=== PATIENT | female | born 1985 | race Caucasian/White ===

== ENCOUNTER 2018-09-08 12:01 | Observation (INO) | payer OTHER, SELFPAY ==
[2018-09-08] VITALS (14 sets, daily range): BP systolic 118–158; BP diastolic 65–101; PULSE 68–93; RESP 16–24; TEMP 36.4–37.2; O2SAT 92–100; BMI 42.6
--- NOTE | 2018-09-08 | PATH_ITS ---
[facility] Accession Number: [id number] . 01 Material submitted: . RIGHT OVARIAN CYST . 02 Diagnosis: Right Ovarian Cyst, Excision: Benign cystic teratoma. No immature components or evidence of malignancy identified. MRV/09/14/2018 . 02 Electronically signed: . Hari Cheatham MD, PhD, Pathologist NPI- [id number] . 01 Gross description: . Received in formalin, labeled right ovarian cyst, is a fragmented ovarian cyst (4.5 x 2.8 x 2.0 cm in aggregate). The serosa is gomes-bello smooth and flat. The cyst contains a cluster of hard well-developed teeth (2.5 x 2.5 x 2.2 cm). The tissue is covered in pale yellow paste-like material and matted strands of hair. No normal ovarian parenchyma is identified. Curtain Stitcher tissue is submitted in cassettes A1-A3. ([id number]) /MRV . 02 Pathologist provided ICD-10: D27.0 . 02 CPT . 137729 Specimen Comment: A duplicate report has been generated due to demographic updates. Performed at: 01 [facility] [address] [place] [address], [place], [place] [id number] MD Glenn Altman MD Phone: [phone] Performed at: 02 [facility] [address] [place], [place] [id number] MD Oneil Santiago MD Phone: [phone]
--- NOTE | 2018-09-08 13:02 | DI.US.S_ITS ---
PROCEDURE: US PELVIC COMPLETE INDICATIONS: PAIN, BLEEDING TECHNIQUE: Real-time scanning was performed of the pelvic organs, with image documentation. Additional endovaginal scanning was necessary due to incomplete visualization of the adnexal and endometrial structures by transabdominal scanning. COMPARISON: [facility], CT, CT ABDOMEN PELVIS W CON, 09/08/2018, 13:40. FINDINGS: Transabdominal scanning: Limited scanning through the kidneys shows no hydronephrosis. No pathologic free abdominal or pelvic fluid. Endovaginal scanning: Uterus: Uterus is normal in size at 4.9 x 2.5 x 3.4 cm. The endometrium measures 0.5 cm in combined thickness. No discrete uterine mass identified. Ovaries: There is a heterogeneous mass in the right adnexa measuring approximately 6.6 x 4.3 x 6.1 cm with echogenic regions compatible with fat as well as shadowing components consistent calcification. 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 The right ovary is not discretely identified separately. The left ovary measures 4.5 x 2.0 x 2.1 cm without a left adnexal mass. IMPRESSION: 1. Heterogeneous right adnexal mass containing fat and calcification consistent with a teratoma. The right ovary is not otherwise separately identified. Given the size of the mass, patient may be at risk for ovarian torsion. Recommend correlation with clinical history. Findings discussed with LORNE Davis on 09/08/18 at 2:05 PM. Dictated by: Glenn Funes M.D. on 09/08/2018 at 14:03 Approved by: Glenn Funes M.D. on 09/08/2018 at 14:09
[2018-09-08 13:17] LABS: Add Manual Diff / Slide Review NO; Basophils Percent Auto 0.9 % (0-2); Hematocrit 40.6 % (36-46); Hemoglobin 13.3 g/dL (12.0-16.0); Lymphocytes Percent Auto 35.1 % (25-40); Mean Corpuscular HGB Conc 32.8 % (30-36); Mean Corpuscular Hemoglobin 26.4 PG (26-34); Mean Corpuscular Volume 80.6 fL (80-100); Monocytes Percent Auto 6.1 % (3-14); Neutrophils Absolute Auto 6100 /uL (3000-5900); Neutrophils Percent Auto 55.9 % (50-75); Platelet Count 487 X10^3/uL (150-400); Red Blood Cell Count 5.04 X10^6/uL (4.0-5.2); Red Cell Distribution Width 14.1 % (11.6-14.8); White Blood Cell Count 10.8 X10^3/uL (4.5-11.0)
[2018-09-08 13:24] LABS: INR 1.1 (0.9-1.3); Prothrombin Time 11.9 SECONDS (10.1-12.7)
[2018-09-08 13:26] LABS: PTT Partial Thromboplastin Tim 34 SECONDS (26.4-36.2)
[2018-09-08 13:30] LABS: Alanine Aminotransferase 32 IU/L (9-52); Albumin 4.3 g/dL (3.5-5.0); Albumin Globulin Ratio 1.5 (1.0-2.8); Alkaline Phosphatase 112 U/L (38-126); Aspartate Aminotransferase 22 IU/L (14-36); BUN Creatinine Ratio 13.8 (6-22); Bilirubin Total 0.3 mg/dL (0.2-1.3); Blood Urea Nitrogen 11 mg/dL (7-17); Carbon Dioxide 28 mmol/L (22-32); Chloride 103 mmol/L (98-107); Estimated Glomerular Filt Rate > 60.0 mL/min (>60); Globulin 2.9 g/dL (1.7-4.1); Glucose 84 mg/dL (70-100); HEMOLYSIS < 15 (0-50); Lipase 49 U/L (23-300); Potassium 3.9 mmol/L (3.4-5.1); Sodium 142 mmol/L (137-145); Total Protein 7.2 g/dL (6.3-8.2)
--- NOTE | 2018-09-08 13:31 | DI.CT.S_ITS ---
PROCEDURE: CT ABDOMEN PELVIS W CON INDICATIONS: Abdominal wall the pain, mass on us TECHNIQUE: After the administration of intravenous contrast, 5 mm thick sections acquired from the diaphragm to the symphysis. 5 mm coronal and sagittal reformats were acquired. For radiation dose reduction, the following was used: automated exposure control, adjustment of mA and/or kV according to patient size. COMPARISON: [facility], US, US PELVIC COMPLETE, 09/08/2018, 13:12. FINDINGS: Image quality: Excellent. ABDOMEN: Lung bases: Lung bases are clear. Heart size is normal. Solid organs: The liver demonstrates no focal hepatic lesions. Gallbladder appears within normal limits without calcified gallstones. Biliary system is non dilated. Pancreas enhances normally. Spleen is normal in size and enhancement. No adrenal nodules. Kidneys demonstrate no hydronephrosis. Peritoneum and bowel: Bowel loops demonstrate normal wall thickness and caliber. The appendix is normal in appearance. No free fluid or air. Nodes and vessels: No retroperitoneal or mesenteric adenopathy by size criteria. Aorta and inferior vena cava are normal in size. Miscellaneous: No ventral hernias. PELVIS: Genitourinary: There is a heterogeneous oval mass in the right adnexa measuring 5.1 x 3.8 x 5.0 cm. There are internal soft tissue, fat, and calcified components. 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 The right ovary is otherwise not discretely identified. Left ovary and uterus appear normal in size. Bladder wall thickness is normal. Miscellaneous: No inguinal hernias or adenopathy. Bones: No suspicious bony lesions. No vertebral body compression fractures. IMPRESSION: 1. Heterogeneous right adnexal mass containing fat and calcification consistent with a teratoma. Given the size of the mass, patient may be at risk for ovarian torsion. Findings discussed with LORNE Davis on 09/08/18 at 2:05 PM. Dictated by: Glenn Funes M.D. on 09/08/2018 at 14:12 Approved by: Glenn Funes M.D. on 09/08/2018 at 14:17
--- NOTE | 2018-09-08 14:23 | ED.ABDPAIN ---
HPI - Abdominal Pain <Elizabeth Kaye, CUSTOM BOW MAKER-BC - Last Filed: 09/08/18 15:26> General Chief Complaint: Abdominal Pain Stated Complaint: PELVIC PAIN,BLEEDING UNEXPECTED Time Seen by Provider: 09/08/18 12:49 Source: patient Mode of arrival: ambulatory Limitations: no limitations History of Present Illness HPI narrative: Patient is a 32-year-old female who presents after being referred from her primary care provider for suspected ovarian torsion or acute etiology. She states that she had sudden onset of lower pelvic pain as well as vaginal bleeding last night. She states she was passing small clots. She denies any possibility of or sexually transmitted infection. She has not been sexually active for the past 7 years. She states she has a history of chronic pelvic pain. She states her last menstruation ended 2 days ago. She denies any fevers, nausea, vomiting, diarrhea, chest pain or shortness of breath. She states sometimes she sees stars with the pain. She quantifies her vaginal bleeding as vaginal bleeding on toilet paper. Related Data Home Medications Medication Instructions Recorded Confirmed albuterol sulfate [ProAir HFA] 1 puff INHALATION PRN PRN 09/08/18 09/08/18 [id number] 1 tab PO PRN PRN 09/08/18 09/08/18 [Excedrin Extra Strength] cetirizine [Zyrtec] 1 tab PO DAILY PRN 09/08/18 09/08/18 epinephrine 1 dose IM PRN PRN 09/08/18 09/08/18 fluticasone [Flonase Allergy 1 spray INTRANASAL PRN PRN 09/08/18 09/08/18 Relief] fluticasone-salmeterol [Advair HFA] 1 puff INHALATION BID 09/08/18 09/08/18 gabapentin 1 cap PO TID 09/08/18 09/08/18 levothyroxine [Synthroid] 1 tab PO DAILY 09/08/18 09/08/18 montelukast 10 mg PO DAILY 09/08/18 09/08/18 Previous Rx's Medication Instructions Recorded ibuprofen 600 mg PO QID PRN #30 tab 09/08/18 oxycodone-acetaminophen 2 tab PO Q4-6H PRN #40 tab 09/08/18 Allergies Allergy/AdvReac Type Severity Reaction Status Date / Time No Known Drug Allergies Allergy Verified 09/08/18 12:07 Review of Systems <Elizabeth Kaye CUSTOM BOW MAKER- - Last Filed: 09/08/18 15:26> Review of Systems GENERAL: Denies chills, fatigue, malaise, fever, sweats. HEENT: Denies sinus pain, ear pain, sore throat, difficulty swallowing, dizziness. RESPIRATORY: Denies dyspnea, cough, wheezing, hemoptysis, sputum. CARDIOVASCULAR: Denies chest pain, palpitations, orthopnea, edema, GASTROINTESTINAL: See HPI : Denies dysuria, frequency, incontinence, hematuria, urinary retention. MUSCULOSKELETAL: denies weakness, joint pain, or bony pain SKIN: Denies rash, skin lesions, or other NEUROLOGIC: Denies weakness, headache, numbness, change in speech, confusion, seizures, incoordination. PSYCHIATRIC: No concerning psychosocial issues. 12 point review of systems is negative except for those stated above Exam <Elizabeth KayeTIGISTP- - Last Filed: 09/08/18 15:26> Narrative Exam Narrative: GENERAL: obese female lying on stretcher with towel over eyes HEAD: Atraumatic. Normocephalic. No temporal or scalp tenderness. EYES: Pupils equal round and reactive. Extraocular motions intact. No scleral icterus. No injection or drainage. ENT: Nose without bleeding, purulent drainage or septal hematoma. Throat without erythema, tonsillar hypertrophy or exudate. Uvula midline. Airway patent. NECK: Trachea midline. No JVD or lymphadenopathy. Supple, nontender, no meningeal signs. CARDIOVASCULAR: Regular rate and rhythm without murmurs, gallops, or rubs. RESPIRATORY: Clear to auscultation. Breath sounds equal bilaterally. No wheezes, rales, or rhonchi. no cough or increased respiratory effort. No accessory muscle use. GASTROINTESTINAL: Abdomen soft, Diffusely tender, nondistended. No hepato-splenomegaly, or palpable masses. increasingly tender to palpation right lower quadrant with guarding noted. Active bowel sounds all 4 quadrants. EXTREMITIES: No clubbing, cyanosis, or edema. No joint tenderness, effusion, or edema noted. BACK: Nontender without deformity or crepitance. No flank tenderness. NEURO: AOx3. SKIN: No rash or erythema. Initial Vital Signs Initial Vital Signs: Vital Signs Temperature 97.5 F L 09/08/18 12:04 Pulse Rate 82 09/08/18 12:04 Respiratory Rate 18 09/08/18 12:04 Blood Pressure 158/101 H 09/08/18 12:04 Pulse Oximetry 94 09/08/18 12:04 <Erasmo Senior MD - Last Filed: 09/08/18 18:29> Initial Vital Signs Initial Vital Signs: Vital Signs Temperature 97.5 F L 09/08/18 12:04 Pulse Rate 82 09/08/18 12:04 Respiratory Rate 18 09/08/18 12:04 Blood Pressure 158/101 H 09/08/18 12:04 Pulse Oximetry 94 09/08/18 12:04 Course <CLARA Davis - Last Filed: 09/08/18 15:26> Orders Ordered: ED Orders 09/08/18 12:55 Complete Blood Count AUTO DIFF Stat Comprehensive Metabolic Panel Stat Lipase Stat Partial Thromboplastin Time Stat Prothrombin Time INR Stat 09/08/18 13:02 US pelvic complete Stat 09/08/18 13:31 CT abdomen pelvis w con Stat Sodium Chloride (Normal Saline 0.9%) 1,000 mls @ 100 mls/hr IV CONT PINA Last Admin: 09/08/18 17:01 Dose: 100 mls/hr Discontinued Medications Sodium Chloride (Normal Saline 0.9%) 1,000 mls @ 1,000 mls/hr IV BOLUS ONE Stop: 09/08/18 14:30 Last Infusion: 09/08/18 16:49 Dose: 0 mls/hr Admin: 09/08/18 15:23 Dose: 1,000 mls/hr Morphine Sulfate (Morphine) 4 mg IV NOW ONE Stop: 09/08/18 14:24 Last Admin: 09/08/18 15:23 Dose: 4 mg Ondansetron HCl (Zofran) 4 mg IV NOW ONE Stop: 09/08/18 14:24 Last Admin: 09/08/18 15:23 Dose: 4 mg Reevaluation(s) Reevaluation #1: Spoke with Radiology regarding imaging results. Given result of pelvic mass, contacted medical assistant ob gyn. Dr. Lloyd states she will be down to evaluate the patient. Discussed plan with patient. Patient remains NPO at this time Time: 14:00 Reevaluation #2: Spoke with Dr. Foist by phone, who states she would like to admit the patient take her to surgery tonight. Time: 15:00 Vital Signs - 8 hr 09/08/18 12:04 09/08/18 14:11 09/08/18 15:55 Temperature 97.5 F L Pulse Rate 82 86 77 Respiratory Rate 18 16 16 Blood Pressure 158/101 H Blood Pressure [Left Arm] 156/96 H 138/69 Pulse Oximetry 94 100 100 09/08/18 16:00 Temperature 98.8 F Pulse Rate 83 Respiratory Rate 16 Blood Pressure 143/94 H Blood Pressure [Left Arm] Pulse Oximetry 98 <Erasmo Senior MD - Last Filed: 09/08/18 18:29> Orders Ordered: ED Orders 09/08/18 12:55 Complete Blood Count AUTO DIFF Stat Comprehensive Metabolic Panel Stat Lipase Stat Partial Thromboplastin Time Stat Prothrombin Time INR Stat 09/08/18 13:02 US pelvic complete Stat 09/08/18 13:31 CT abdomen pelvis w con Stat Sodium Chloride (Normal Saline 0.9%) 1,000 mls @ 100 mls/hr IV CONT PINA Last Admin: 09/08/18 17:01 Dose: 100 mls/hr Discontinued Medications Sodium Chloride (Normal Saline 0.9%) 1,000 mls @ 1,000 mls/hr IV BOLUS ONE Stop: 09/08/18 14:30 Last Infusion: 09/08/18 16:49 Dose: 0 mls/hr Admin: 09/08/18 15:23 Dose: 1,000 mls/hr Morphine Sulfate (Morphine) 4 mg IV NOW ONE Stop: 09/08/18 14:24 Last Admin: 09/08/18 15:23 Dose: 4 mg Ondansetron HCl (Zofran) 4 mg IV NOW ONE Stop: 09/08/18 14:24 Last Admin: 09/08/18 15:23 Dose: 4 mg Vital Signs - 8 hr 09/08/18 12:04 09/08/18 14:11 09/08/18 15:55 Temperature 97.5 F L Pulse Rate 82 86 77 Respiratory Rate 18 16 16 Blood Pressure 158/101 H Blood Pressure [Left Arm] 156/96 H 138/69 Pulse Oximetry 94 100 100 09/08/18 16:00 Temperature 98.8 F Pulse Rate 83 Respiratory Rate 16 Blood Pressure 143/94 H Blood Pressure [Left Arm] Pulse Oximetry 98 MDM - Abdominal Pain <Elizabeth Kaye, C[employer] BOW MAKER-BC - Last Filed: 09/08/18 15:26> Lab Data Result diagrams: 09/08/18 12:55 09/08/18 12:55 Lab Results 09/08/18 09/08/18 09/08/18 Range/Units 12:55 12:55 12:55 WBC 10.8 (4.5-11.0) X10^3/uL RBC 5.04 (4.0-5.2) X10^6/uL Hgb 13.3 (12.0-16.0) g/dL Hct 40.6 (36-46) % MCV 80.6 (80-100) fL MCH 26.4 (26-34) PG MCHC 32.8 (30-36) % RDW 14.1 (11.6-14.8) % Plt Count 487 H (150-400) X10^3/uL Neut % (Auto) 55.9 (50-75) % Lymph % (Auto) 35.1 (25-40) % [place] % (Auto) 6.1 (3-14) % Eos % (Auto) 2.0 (2-4) % Baso % (Auto) 0.9 (0-2) % Neut # (Auto) 6100 H (8189-5969) /uL PT 11.9 (10.1-12.7) SECONDS INR 1.1 (0.9-1.3) APTT 34 (26.4-36.2) SECONDS Sodium 142 (137-145) mmol/L Potassium 3.9 (3.4-5.1) mmol/L Chloride 103 (98-107) mmol/L Carbon Dioxide 28 (22-32) mmol/L BUN 11 (7-17) mg/dL Creatinine 0.80 (0.52-1.04) mg/dL Estimated GFR > 60.0 (>60) mL/min BUN/Creatinine Ratio 13.8 (6-22) Glucose 84 (70-100) mg/dL Calcium 9.0 (8.4-10.2) mg/dL Total Bilirubin 0.3 (0.2-1.3) mg/dL AST 22 (14-36) IU/L ALT 32 (9-52) IU/L Alkaline Phosphatase 112 (38-126) U/L Total Protein 7.2 (6.3-8.2) g/dL Albumin 4.3 (3.5-5.0) g/dL Globulin 2.9 (1.7-4.1) g/dL Albumin/Globulin Ratio 1.5 (1.0-2.8) Lipase 49 (23-300) U/L Point of care testing: Point of Care Testing Test Results Negative Urine Dip Bedside Urine Glucose Negative Bedside Urine Bilirubin - Negative Bedside Urine Ketone - Negative Urine Specific [place] 1.020 Bedside Urine Occult Blood + Bedside Urine pH 6.0 Bedside Urine Protein - Negative Bedside Urine Urobilinogen - Negative Bedside Urine Nitrite - Negative Bedside Urine Leukocytes - Negative Esterase Imaging Data pelvic us: Radiologist's impression: [facility] DATE TYPE STATUS AUTHOR Agnes 09/08/18 13:31 Glenn Funes 09/08/18 13:02 Glenn FunesCullen duffyie R 32, F1985 ADM IN, AC 204 -1 166.37cm 117.934kg BSA: 2.22m? BMI: 42.6kg/m? Search Chart No Known Drug Allergies ONSET Today 14:11 [place] [address] Ultrasound Report Signed Patient: Jacinto Flowers RMR#: [id number] : 1985Acct:[id number] Age/Sex: te of Service: 09/08/18 Loc: ED Accession Number: [id number] Procedure: US pelvic complete Ordering Provider: Elizabeth Kaye CUSTOM BOW MAKER- PROCEDURE: US PELVIC COMPLETE INDICATIONS: PAIN, BLEEDING TECHNIQUE: Real-time scanning was performed of the pelvic organs, with image documentation. Additional endovaginal scanning was necessary due to incomplete visualization of the adnexal and endometrial structures by transabdominal scanning. COMPARISON: [facility], CT, CT ABDOMEN PELVIS W CON, 09/08/2018, 13:40. FINDINGS: Transabdominal scanning: Limited scanning through the kidneys shows no hydronephrosis. No pathologic free abdominal or pelvic fluid. Endovaginal scanning: Uterus: Uterus is normal in size at 4.9 x 2.5 x 3.4 cm. The endometrium measures 0.5 cm in combined thickness. No discrete uterine mass identified. Ovaries: There is a heterogeneous mass in the right adnexa measuring approximately 6.6 x 4.3 x 6.1 cm with echogenic regions compatible with fat as well as shadowing components consistent calcification. 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 The right ovary is not discretely identified separately. The left ovary measures 4.5 x 2.0 x 2.1 cm without a left adnexal mass. IMPRESSION: 1. Heterogeneous right adnexal mass containing fat and calcification consistent with a teratoma. The right ovary is not otherwise separately identified. Given the size of the mass, patient may be at risk for ovarian torsion. Recommend correlation with clinical history. Findings discussed with LORNE Davis on 09/08/18 at 2:05 PM. Dictated by: Glenn Funes M.D. on 09/08/2018 at 14:03 Approved by: Glenn Funes M.D. on 09/08/2018 at 14:09 CT scan - pelvis: Radiologist's impression: [place] [address] CT Scan Report Signed Patient: Jacinto Flowers RMR#: [id number] : 1985Acct:[id number] Age/Sex: te of Service: 09/08/18 Loc: ED Accession Number: [id number] Procedure: CT abdomen pelvis w con Ordering Provider: Elizabeth Kaye- PROCEDURE: CT ABDOMEN PELVIS W CON INDICATIONS: Abdominal wall the pain, mass on us TECHNIQUE: After the administration of intravenous contrast, 5 mm thick sections acquired from the diaphragm to the symphysis. 5 mm coronal and sagittal reformats were acquired. For radiation dose reduction, the following was used: automated exposure control, adjustment of mA and/or kV according to patient size. COMPARISON: [facility], , US PELVIC COMPLETE, 09/08/2018, 13:12. FINDINGS: Image quality: Excellent. ABDOMEN: Lung bases: Lung bases are clear. Heart size is normal. Solid organs: The liver demonstrates no focal hepatic lesions. Gallbladder appears within normal limits without calcified gallstones. Biliary system is non dilated. Pancreas enhances normally. Spleen is normal in size and enhancement. No adrenal nodules. Kidneys demonstrate no hydronephrosis. Peritoneum and bowel: Bowel loops demonstrate normal wall thickness and caliber. The appendix is normal in appearance. No free fluid or air. Nodes and vessels: No retroperitoneal or mesenteric adenopathy by size criteria. Aorta and inferior vena cava are normal in size. Miscellaneous: No ventral hernias. PELVIS: Genitourinary: There is a heterogeneous oval mass in the right adnexa measuring 5.1 x 3.8 x 5.0 cm. There are internal soft tissue, fat, and calcified components. 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 The right ovary is otherwise not discretely identified. Left ovary and uterus appear normal in size. Bladder wall thickness is normal. Miscellaneous: No inguinal hernias or adenopathy. Bones: No suspicious bony lesions. No vertebral body compression fractures. IMPRESSION: 1. Heterogeneous right adnexal mass containing fat and calcification consistent with a teratoma. Given the size of the mass, patient may be at risk for ovarian torsion. Findings discussed with LORNE Davis on 09/08/18 at 2:05 PM. Dictated by: Glenn Funes M.D. on 09/08/2018 at 14:12 Approved by: Glenn Funes M.D. on 09/08/2018 at 14:17 MDM Narrative Medical decision making narrative: patient is a 32-year-old female who presents with acute onset of pelvic pain and vaginal bleeding last night. Given the acuteness of her exam, a pelvic ultrasound was obtained which revealed a mass so a CT was also obtained. I discussed findings with the radiologist, who stated the patient likely has a teratoma but he cannot rule out ovarian torsion given the size of the mass. I spoke with the OBGYN on-call, who was down to evaluate the patient. Dr. Lloyd plans on admitting the patient and taking her to surgery later tonight. Discussed at length the plan with the patient she has no questions or concerns. <Erasmo Senior MD - Last Filed: 09/08/18 18:29> Lab Data Lab Results 09/08/18 09/08/18 09/08/18 Range/Units 12:55 12:55 12:55 WBC 10.8 (4.5-11.0) X10^3/uL RBC 5.04 (4.0-5.2) X10^6/uL Hgb 13.3 (12.0-16.0) g/dL Hct 40.6 (36-46) % MCV 80.6 (80-100) fL MCH 26.4 (26-34) PG MCHC 32.8 (30-36) % RDW 14.1 (11.6-14.8) % Plt Count 487 H (150-400) X10^3/uL Neut % (Auto) 55.9 (50-75) % Lymph % (Auto) 35.1 (25-40) % [place] % (Auto) 6.1 (3-14) % Eos % (Auto) 2.0 (2-4) % Baso % (Auto) 0.9 (0-2) % Neut # (Auto) 6100 H (1735-3231) /uL PT 11.9 (10.1-12.7) SECONDS INR 1.1 (0.9-1.3) APTT 34 (26.4-36.2) SECONDS Sodium 142 (137-145) mmol/L Potassium 3.9 (3.4-5.1) mmol/L Chloride 103 (98-107) mmol/L Carbon Dioxide 28 (22-32) mmol/L BUN 11 (7-17) mg/dL Creatinine 0.80 (0.52-1.04) mg/dL Estimated GFR > 60.0 (>60) mL/min BUN/Creatinine Ratio 13.8 (6-22) Glucose 84 (70-100) mg/dL Calcium 9.0 (8.4-10.2) mg/dL Total Bilirubin 0.3 (0.2-1.3) mg/dL AST 22 (14-36) IU/L ALT 32 (9-52) IU/L Alkaline Phosphatase 112 (38-126) U/L Total Protein 7.2 (6.3-8.2) g/dL Albumin 4.3 (3.5-5.0) g/dL Globulin 2.9 (1.7-4.1) g/dL Albumin/Globulin Ratio 1.5 (1.0-2.8) Lipase 49 (23-300) U/L Point of care testing: Point of Care Testing Test Results Negative Urine Dip Bedside Urine Glucose Negative Bedside Urine Bilirubin - Negative Bedside Urine Ketone - Negative Urine Specific [place] 1.020 Bedside Urine Occult Blood + Bedside Urine pH 6.0 Bedside Urine Protein - Negative Bedside Urine Urobilinogen - Negative Bedside Urine Nitrite - Negative Bedside Urine Leukocytes - Negative Esterase Discharge Plan Departure Patient Disposition: Admitted As Inpatient Clinical Impression: Teratoma, Abdominal pain Discharge Date/Time: 09/08/18 16:45 Interventions: ED Discharge Assessment Last Done: 09/08/18 16:00 Admit Date/Time: 09/08/18 15:21 Admit Provider: Crista Lloyd <Erasmo Senior MD - Last Filed: 09/08/18 18:29> Cosign ED Attending Cosangelesature Attestation: I was present in the ER at the time of this patient's care. I was available for verbal consultation or to see the patient directly if requested. I agree with the assessment and treatment plan.
[2018-09-08] MEDS: SODIUM CHLORIDE 0.9% 1,000 ML 1000 ML IV (15:23)
[2018-09-08] MEDS: ONDANSETRON 4 MG/2 ML INJ IV (15:23)
[2018-09-08] MEDS: MORPHINE 4 MG/ML INJ IV ×2 (15:23→19:10)
--- NOTE | 2018-09-08 15:26 | ED_ITS ---
HPI - Abdominal Pain <Elizabeth Kaye, SOCCER COMMENTATOR-BC - Last Filed: 09/08/18 15:26> General Chief Complaint: Abdominal Pain Stated Complaint: PELVIC PAIN,BLEEDING UNEXPECTED Time Seen by Provider: 09/08/18 12:49 Source: patient Mode of arrival: ambulatory Limitations: no limitations History of Present Illness HPI narrative: Patient is a 32-year-old female who presents after being referred from her primary care provider for suspected ovarian torsion or acute etiology. She states that she had sudden onset of lower pelvic pain as well as vaginal bleeding last night. She states she was passing small clots. She denies any possibility of or sexually transmitted infection. She has not been sexually active for the past 7 years. She states she has a history of chronic pelvic pain. She states her last menstruation ended 2 days ago. She denies any fevers, nausea, vomiting, diarrhea, chest pain or shortness of breath. She states sometimes she sees stars with the pain. She quantifies her vaginal bleeding as vaginal bleeding on toilet paper. Related Data Home Medications Medication Instructions Recorded Confirmed albuterol sulfate [ProAir HFA] 1 puff INHALATION PRN PRN 09/08/18 09/08/18 meokgkn-jkzydutfcpudb-gjveagfh 1 tab PO PRN PRN 09/08/18 09/08/18 [Excedrin Extra Strength] cetirizine [Zyrtec] 1 tab PO DAILY PRN 09/08/18 09/08/18 epinephrine 1 dose IM PRN PRN 09/08/18 09/08/18 fluticasone [Flonase Allergy 1 spray INTRANASAL PRN PRN 09/08/18 09/08/18 Relief] fluticasone-salmeterol [Advair HFA] 1 puff INHALATION BID 09/08/18 09/08/18 gabapentin 1 cap PO TID 09/08/18 09/08/18 levothyroxine [Synthroid] 1 tab PO DAILY 09/08/18 09/08/18 montelukast 10 mg PO DAILY 09/08/18 09/08/18 Previous Rx's Medication Instructions Recorded ibuprofen 600 mg PO QID PRN #30 tab 09/08/18 oxycodone-acetaminophen 2 tab PO Q4-6H PRN #40 tab 09/08/18 Allergies Allergy/AdvReac Type Severity Reaction Status Date / Time No Known Drug Allergies Allergy Verified 09/08/18 12:07 Review of Systems <Elizabeth Kaye SOCCER COMMENTATOR- - Last Filed: 09/08/18 15:26> Review of Systems GENERAL: Denies chills, fatigue, malaise, fever, sweats. HEENT: Denies sinus pain, ear pain, sore throat, difficulty swallowing, dizziness. RESPIRATORY: Denies dyspnea, cough, wheezing, hemoptysis, sputum. CARDIOVASCULAR: Denies chest pain, palpitations, orthopnea, edema, GASTROINTESTINAL: See HPI : Denies dysuria, frequency, incontinence, hematuria, urinary retention. MUSCULOSKELETAL: denies weakness, joint pain, or bony pain SKIN: Denies rash, skin lesions, or other NEUROLOGIC: Denies weakness, headache, numbness, change in speech, confusion, seizures, incoordination. PSYCHIATRIC: No concerning psychosocial issues. 12 point review of systems is negative except for those stated above Exam <Elizabeth KayeTIGISTP- - Last Filed: 09/08/18 15:26> Narrative Exam Narrative: GENERAL: obese female lying on stretcher with towel over eyes HEAD: Atraumatic. Normocephalic. No temporal or scalp tenderness. EYES: Pupils equal round and reactive. Extraocular motions intact. No scleral icterus. No injection or drainage. ENT: Nose without bleeding, purulent drainage or septal hematoma. Throat without erythema, tonsillar hypertrophy or exudate. Uvula midline. Airway patent. NECK: Trachea midline. No JVD or lymphadenopathy. Supple, nontender, no meningeal signs. CARDIOVASCULAR: Regular rate and rhythm without murmurs, gallops, or rubs. RESPIRATORY: Clear to auscultation. Breath sounds equal bilaterally. No wheezes , rales, or rhonchi. no cough or increased respiratory effort. No accessory muscle use. GASTROINTESTINAL: Abdomen soft, Diffusely tender, nondistended. No hepato- splenomegaly, or palpable masses. increasingly tender to palpation right lower quadrant with guarding noted. Active bowel sounds all 4 quadrants. EXTREMITIES: No clubbing, cyanosis, or edema. No joint tenderness, effusion, or edema noted. BACK: Nontender without deformity or crepitance. No flank tenderness. NEURO: AOx3. SKIN: No rash or erythema. Initial Vital Signs Initial Vital Signs: Vital Signs Temperature 97.5 F L 09/08/18 12:04 Pulse Rate 82 09/08/18 12:04 Respiratory Rate 18 09/08/18 12:04 Blood Pressure 158/101 H 09/08/18 12:04 Pulse Oximetry 94 09/08/18 12:04 <Erasmo Senior MD - Last Filed: 09/08/18 18:29> Initial Vital Signs Initial Vital Signs: Vital Signs Temperature 97.5 F L 09/08/18 12:04 Pulse Rate 82 09/08/18 12:04 Respiratory Rate 18 09/08/18 12:04 Blood Pressure 158/101 H 09/08/18 12:04 Pulse Oximetry 94 09/08/18 12:04 Course <CLARA Davis - Last Filed: 09/08/18 15:26> Orders Ordered: ED Orders 09/08/18 12:55 Complete Blood Count AUTO DIFF Stat Comprehensive Metabolic Panel Stat Lipase Stat Partial Thromboplastin Time Stat Prothrombin Time INR Stat 09/08/18 13:02 US pelvic complete Stat 09/08/18 13:31 CT abdomen pelvis w con Stat Sodium Chloride (Normal Saline 0.9%) 1,000 mls @ 100 mls/hr IV CONT PINA Last Admin: 09/08/18 17:01 Dose: 100 mls/hr Discontinued Medications Sodium Chloride (Normal Saline 0.9%) 1,000 mls @ 1,000 mls/hr IV BOLUS ONE Stop: 09/08/18 14:30 Last Infusion: 09/08/18 16:49 Dose: 0 mls/hr Admin: 09/08/18 15:23 Dose: 1,000 mls/hr Morphine Sulfate (Morphine) 4 mg IV NOW ONE Stop: 09/08/18 14:24 Last Admin: 09/08/18 15:23 Dose: 4 mg Ondansetron HCl (Zofran) 4 mg IV NOW ONE Stop: 09/08/18 14:24 Last Admin: 09/08/18 15:23 Dose: 4 mg Reevaluation(s) Reevaluation #1: Spoke with Radiology regarding imaging results. Given result of pelvic mass, contacted marketing representative. Dr. Lloyd states she will be down to evaluate the patient. Discussed plan with patient. Patient remains NPO at this time Time: 14:00 Reevaluation #2: Spoke with Dr. Foist by phone, who states she would like to admit the patient take her to surgery tonight. Time: 15:00 Vital Signs - 8 hr 09/08/18 12:04 09/08/18 14:11 09/08/18 15:55 Temperature 97.5 F L Pulse Rate 82 86 77 Respiratory Rate 18 16 16 Blood Pressure 158/101 H Blood Pressure [Left Arm] 156/96 H 138/69 Pulse Oximetry 94 100 100 09/08/18 16:00 Temperature 98.8 F Pulse Rate 83 Respiratory Rate 16 Blood Pressure 143/94 H Blood Pressure [Left Arm] Pulse Oximetry 98 <Erasmo Senior MD - Last Filed: 09/08/18 18:29> Orders Ordered: ED Orders 09/08/18 12:55 Complete Blood Count AUTO DIFF Stat Comprehensive Metabolic Panel Stat Lipase Stat Partial Thromboplastin Time Stat Prothrombin Time INR Stat 09/08/18 13:02 US pelvic complete Stat 09/08/18 13:31 CT abdomen pelvis w con Stat Sodium Chloride (Normal Saline 0.9%) 1,000 mls @ 100 mls/hr IV CONT PINA Last Admin: 09/08/18 17:01 Dose: 100 mls/hr Discontinued Medications Sodium Chloride (Normal Saline 0.9%) 1,000 mls @ 1,000 mls/hr IV BOLUS ONE Stop: 09/08/18 14:30 Last Infusion: 09/08/18 16:49 Dose: 0 mls/hr Admin: 09/08/18 15:23 Dose: 1,000 mls/hr Morphine Sulfate (Morphine) 4 mg IV NOW ONE Stop: 09/08/18 14:24 Last Admin: 09/08/18 15:23 Dose: 4 mg Ondansetron HCl (Zofran) 4 mg IV NOW ONE Stop: 09/08/18 14:24 Last Admin: 09/08/18 15:23 Dose: 4 mg Vital Signs - 8 hr 09/08/18 12:04 09/08/18 14:11 09/08/18 15:55 Temperature 97.5 F L Pulse Rate 82 86 77 Respiratory Rate 18 16 16 Blood Pressure 158/101 H Blood Pressure [Left Arm] 156/96 H 138/69 Pulse Oximetry 94 100 100 09/08/18 16:00 Temperature 98.8 F Pulse Rate 83 Respiratory Rate 16 Blood Pressure 143/94 H Blood Pressure [Left Arm] Pulse Oximetry 98 MDM - Abdominal Pain <Elizabeth Kaye, SOCCER COMMENTATOR-BC - Last Filed: 09/08/18 15:26> Lab Data Result diagrams: 09/08/18 12:55 09/08/18 12:55 Lab Results 09/08/18 09/08/18 09/08/18 Range/Units 12:55 12:55 12:55 WBC 10.8 (4.5-11.0) X10^3/uL RBC 5.04 (4.0-5.2) X10^6/uL Hgb 13.3 (12.0-16.0) g/dL Hct 40.6 (36-46) % MCV 80.6 (80-100) fL MCH 26.4 (26-34) PG MCHC 32.8 (30-36) % RDW 14.1 (11.6-14.8) % Plt Count 487 H (150-400) X10^3/uL Neut % (Auto) 55.9 (50-75) % Lymph % (Auto) 35.1 (25-40) % [place] % (Auto) 6.1 (3-14) % Eos % (Auto) 2.0 (2-4) % Baso % (Auto) 0.9 (0-2) % Neut # (Auto) 6100 H (4423-3733) /uL PT 11.9 (10.1-12.7) SECONDS INR 1.1 (0.9-1.3) APTT 34 (26.4-36.2) SECONDS Sodium 142 (137-145) mmol/L Potassium 3.9 (3.4-5.1) mmol/L Chloride 103 (98-107) mmol/L Carbon Dioxide 28 (22-32) mmol/L BUN 11 (7-17) mg/dL Creatinine 0.80 (0.52-1.04) mg/dL Estimated GFR > 60.0 (>60) mL/min BUN/Creatinine Ratio 13.8 (6-22) Glucose 84 (70-100) mg/dL Calcium 9.0 (8.4-10.2) mg/dL Total Bilirubin 0.3 (0.2-1.3) mg/dL AST 22 (14-36) IU/L ALT 32 (9-52) IU/L Alkaline Phosphatase 112 (38-126) U/L Total Protein 7.2 (6.3-8.2) g/dL Albumin 4.3 (3.5-5.0) g/dL Globulin 2.9 (1.7-4.1) g/dL Albumin/Globulin Ratio 1.5 (1.0-2.8) Lipase 49 (23-300) U/L Point of care testing: Point of Care Testing Test Results Negative Urine Dip Bedside Urine Glucose Negative Bedside Urine Bilirubin - Negative Bedside Urine Ketone - Negative Urine Specific [place] 1.020 Bedside Urine Occult Blood + Bedside Urine pH 6.0 Bedside Urine Protein - Negative Bedside Urine Urobilinogen - Negative Bedside Urine Nitrite - Negative Bedside Urine Leukocytes - Negative Esterase Imaging Data pelvic us: Radiologist's impression: [facility] DATE TYPE STATUS AUTHOR Agnes 09/08/18 13:31 Glenn Funes 09/08/18 13:02 Glenn FunesCullen duffyie R 32, F1985 ADM IN, AC 204 -1 166.37cm 117.934kg BSA: 2.22m? BMI: 42.6kg/m? Search Chart No Known Drug Allergies ONSET Today 14:11 [place] [address] Ultrasound Report Signed Patient: Jacinto Flowers RMR#: [id number] : 1985Acct:[id number] Age/Sex: te of Service: 09/08/18 Loc: ED Accession Number: [id number] Procedure: US pelvic complete Ordering Provider: Elizabeth Kaye SOCCER COMMENTATOR- PROCEDURE: US PELVIC COMPLETE INDICATIONS: PAIN, BLEEDING TECHNIQUE: Real-time scanning was performed of the pelvic organs, with image documentation. Additional endovaginal scanning was necessary due to incomplete visualization of the adnexal and endometrial structures by transabdominal scanning. COMPARISON: [facility], CT, CT ABDOMEN PELVIS W CON, 09/08/2018, 13:40. FINDINGS: Transabdominal scanning: Limited scanning through the kidneys shows no hydronephrosis. No pathologic free abdominal or pelvic fluid. Endovaginal scanning: Uterus: Uterus is normal in size at 4.9 x 2.5 x 3.4 cm. The endometrium measures 0.5 cm in combined thickness. No discrete uterine mass identified. Ovaries: There is a heterogeneous mass in the right adnexa measuring approximately 6.6 x 4.3 x 6.1 cm with echogenic regions compatible with fat as well as shadowing components consistent calcification. 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 The right ovary is not discretely identified separately. The left ovary measures 4.5 x 2.0 x 2.1 cm without a left adnexal mass. IMPRESSION: 1. Heterogeneous right adnexal mass containing fat and calcification consistent with a teratoma. The right ovary is not otherwise separately identified. Given the size of the mass, patient may be at risk for ovarian torsion. Recommend correlation with clinical history. Findings discussed with LORNE Davis on 09/08/18 at 2:05 PM. Dictated by: Glenn Funes M.D. on 09/08/2018 at 14:03 Approved by: Glenn Funes M.D. on 09/08/2018 at 14:09 CT scan - pelvis: Radiologist's impression: [place] [address] CT Scan Report Signed Patient: Jacinto Flowers RMR#: [id number] : 1985Acct:[id number] Age/Sex: te of Service: 09/08/18 Loc: ED Accession Number: [id number] Procedure: CT abdomen pelvis w con Ordering Provider: Elizabeth Kaye- PROCEDURE: CT ABDOMEN PELVIS W CON INDICATIONS: Abdominal wall the pain, mass on us TECHNIQUE: After the administration of intravenous contrast, 5 mm thick sections acquired from the diaphragm to the symphysis. 5 mm coronal and sagittal reformats were acquired. For radiation dose reduction, the following was used: automated exposure control, adjustment of mA and/or kV according to patient size. COMPARISON: [facility], , US PELVIC COMPLETE, 09/08/2018, 13:12. FINDINGS: Image quality: Excellent. ABDOMEN: Lung bases: Lung bases are clear. Heart size is normal. Solid organs: The liver demonstrates no focal hepatic lesions. Gallbladder appears within normal limits without calcified gallstones. Biliary system is non dilated. Pancreas enhances normally. Spleen is normal in size and enhancement. No adrenal nodules. Kidneys demonstrate no hydronephrosis. Peritoneum and bowel: Bowel loops demonstrate normal wall thickness and caliber. The appendix is normal in appearance. No free fluid or air. Nodes and vessels: No retroperitoneal or mesenteric adenopathy by size criteria. Aorta and inferior vena cava are normal in size. Miscellaneous: No ventral hernias. PELVIS: Genitourinary: There is a heterogeneous oval mass in the right adnexa measuring 5.1 x 3.8 x 5.0 cm. There are internal soft tissue, fat, and calcified components. 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 The right ovary is otherwise not discretely identified. Left ovary and uterus appear normal in size. Bladder wall thickness is normal. Miscellaneous: No inguinal hernias or adenopathy. Bones: No suspicious bony lesions. No vertebral body compression fractures. IMPRESSION: 1. Heterogeneous right adnexal mass containing fat and calcification consistent with a teratoma. Given the size of the mass, patient may be at risk for ovarian torsion. Findings discussed with LORNE Davis on 09/08/18 at 2:05 PM. Dictated by: Glenn Funes M.D. on 09/08/2018 at 14:12 Approved by: Glenn Funes M.D. on 09/08/2018 at 14:17 MDM Narrative Medical decision making narrative: patient is a 32-year-old female who presents with acute onset of pelvic pain and vaginal bleeding last night. Given the acuteness of her exam, a pelvic ultrasound was obtained which revealed a mass so a CT was also obtained. I discussed findings with the radiologist, who stated the patient likely has a teratoma but he cannot rule out ovarian torsion given the size of the mass. I spoke with the OBGYN on-call , who was down to evaluate the patient. Dr. Lloyd plans on admitting the patient and taking her to surgery later tonight. Discussed at length the plan with the patient she has no questions or concerns. <Erasmo Senior MD - Last Filed: 09/08/18 18:29> Lab Data Lab Results 09/08/18 09/08/18 09/08/18 Range/Units 12:55 12:55 12:55 WBC 10.8 (4.5-11.0) X10^3/uL RBC 5.04 (4.0-5.2) X10^6/uL Hgb 13.3 (12.0-16.0) g/dL Hct 40.6 (36-46) % MCV 80.6 (80-100) fL MCH 26.4 (26-34) PG MCHC 32.8 (30-36) % RDW 14.1 (11.6-14.8) % Plt Count 487 H (150-400) X10^3/uL Neut % (Auto) 55.9 (50-75) % Lymph % (Auto) 35.1 (25-40) % [place] % (Auto) 6.1 (3-14) % Eos % (Auto) 2.0 (2-4) % Baso % (Auto) 0.9 (0-2) % Neut # (Auto) 6100 H (7582-3562) /uL PT 11.9 (10.1-12.7) SECONDS INR 1.1 (0.9-1.3) APTT 34 (26.4-36.2) SECONDS Sodium 142 (137-145) mmol/L Potassium 3.9 (3.4-5.1) mmol/L Chloride 103 (98-107) mmol/L Carbon Dioxide 28 (22-32) mmol/L BUN 11 (7-17) mg/dL Creatinine 0.80 (0.52-1.04) mg/dL Estimated GFR > 60.0 (>60) mL/min BUN/Creatinine Ratio 13.8 (6-22) Glucose 84 (70-100) mg/dL Calcium 9.0 (8.4-10.2) mg/dL Total Bilirubin 0.3 (0.2-1.3) mg/dL AST 22 (14-36) IU/L ALT 32 (9-52) IU/L Alkaline Phosphatase 112 (38-126) U/L Total Protein 7.2 (6.3-8.2) g/dL Albumin 4.3 (3.5-5.0) g/dL Globulin 2.9 (1.7-4.1) g/dL Albumin/Globulin Ratio 1.5 (1.0-2.8) Lipase 49 (23-300) U/L Point of care testing: Point of Care Testing Test Results Negative Urine Dip Bedside Urine Glucose Negative Bedside Urine Bilirubin - Negative Bedside Urine Ketone - Negative Urine Specific [place] 1.020 Bedside Urine Occult Blood + Bedside Urine pH 6.0 Bedside Urine Protein - Negative Bedside Urine Urobilinogen - Negative Bedside Urine Nitrite - Negative Bedside Urine Leukocytes - Negative Esterase Discharge Plan Departure Patient Disposition: Admitted As Inpatient Clinical Impression: Teratoma, Abdominal pain Discharge Date/Time: 09/08/18 16:45 Interventions: ED Discharge Assessment Last Done: 09/08/18 16:00 Admit Date/Time: 09/08/18 15:21 Admit Provider: Crista Lloyd <Erasmo Senior MD - Last Filed: 09/08/18 18:29> Cosign ED Attending Cosangelesature Attestation: I was present in the ER at the time of this patient's care. I was available for verbal consultation or to see the patient directly if requested. I agree with the assessment and treatment plan.
--- NOTE | 2018-09-08 16:43 | PM.GYNHP.1 ---
History of Present Illness Reason for admission: other (Right lower quadrant pain and teratoma possible torsion on ultrasound and CT) Narrative: Jacinto Flowers is a 32 year old female admitted for surgical evaluation of right lower quadrant pain with teratoma by a CT scan/ultrasound with possible torsion [facility] Medical History Migraine headache with aura (Chronic) Surgical History History of tonsillectomy (Inactive) S/P wrist surgery (Inactive) Social History household members: spouse Smoking Status: Never smoker Meds Home Medications Medication Instructions Recorded Confirmed Type albuterol sulfate [ProAir HFA] 1 puff INHALATION PRN PRN 09/08/18 09/08/18 History dvtubtj-yqavnqlhqeuue-qjixbscf 1 tab PO PRN PRN 09/08/18 09/08/18 History [Excedrin Extra Strength] cetirizine [Zyrtec] 1 tab PO DAILY PRN 09/08/18 09/08/18 History epinephrine 1 dose IM PRN PRN 09/08/18 09/08/18 History fluticasone [Flonase Allergy 1 spray INTRANASAL PRN PRN 09/08/18 09/08/18 History Relief] fluticasone-salmeterol [Advair HFA] 1 puff INHALATION BID 09/08/18 09/08/18 History gabapentin 1 cap PO TID 09/08/18 09/08/18 History ibuprofen 600 mg PO QID PRN #30 tab 09/08/18 Rx levothyroxine [Synthroid] 1 tab PO DAILY 09/08/18 09/08/18 History montelukast 10 mg PO DAILY 09/08/18 09/08/18 History oxycodone-acetaminophen 2 tab PO Q4-6H PRN #40 tab 09/08/18 Rx Allergies Allergy/AdvReac Type Severity Reaction Status Date / Time No Known Drug Allergies Allergy Verified 09/08/18 12:07 Review of Systems Review of Systems Patient was doing well until yesterday when she started to have increasing right lower quadrant pain. She presented to would be ER who sent her here for diagnostic imaging. She denies any nausea. She has been having some unusual bleeding. She denies any fevers. She denies any constipation or diarrhea. She denies any problems with urination. All systems reviewed & are unremarkable except as noted in HPI and below Exam Vital Signs (past 8 hours): - 09/08/18 12:04 09/08/18 14:11 09/08/18 15:55 Temperature 97.5 F L Pulse Rate 82 86 77 Respiratory Rate 18 16 16 Blood Pressure 158/101 H Blood Pressure [Left Arm] 156/96 H 138/69 Pulse Oximetry 94 100 100 09/08/18 16:00 Temperature 98.8 F Pulse Rate 83 Respiratory Rate 16 Blood Pressure 143/94 H Blood Pressure [Left Arm] Pulse Oximetry 98 Oxygen Delivery Method Room Air Narrative Exam Narrative: HEENT exam within normal limits. Lungs are clear to auscultation and percussion. Heart is regular rate and rhythm no S3-S4 or murmurs. Abdomen is soft with tenderness with possible mild rebound in her right lower quadrant. Pelvic exam deferred for exam under anesthesia extremities without edema and nontender. Objective Labs Result Diagrams: 09/08/18 12:55 09/08/18 12:55 Labs: Laboratory Results - last 24 hr 09/08/18 09/08/18 09/08/18 12:55 12:55 12:55 WBC 10.8 RBC 5.04 Hgb 13.3 Hct 40.6 MCV 80.6 MCH 26.4 MCHC 32.8 RDW 14.1 Plt Count 487 H Neut % (Auto) 55.9 Lymph % (Auto) 35.1 [place] % (Auto) 6.1 Eos % (Auto) 2.0 Baso % (Auto) 0.9 Neut # (Auto) 6100 H PT 11.9 INR 1.1 APTT 34 Sodium 142 Potassium 3.9 Chloride 103 Carbon Dioxide 28 BUN 11 Creatinine 0.80 Estimated GFR > 60.0 BUN/Creatinine Ratio 13.8 Glucose 84 Calcium 9.0 Total Bilirubin 0.3 AST 22 ALT 32 Alkaline Phosphatase 112 Total Protein 7.2 Albumin 4.3 Globulin 2.9 Albumin/Globulin Ratio 1.5 Lipase 49 Assessment & Plan (1) Teratoma: Current visit: Yes Status: Acute (2) Abdominal pain: Qualifiers: Abdominal location: lower abdomen, unspecified Qualified Code(s): R10.30 - Lower abdominal pain, unspecified Current visit: Yes Status: Acute Plan: Assessment/Plan Narrative: Patient with ultrasound and CT scan showing 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 Decision was made to proceed with laparoscopic removal. Patient understands that if possible we will try to save her ovary removing just the cyst. If the ovary is torsed and does not appear to have blood flow after on twisting then that she understands her ovary and tube on the right side will be removed. Risk of damage to internal organs, infection, bleeding enough to require blood transfusion, complication from anesthesia were discussed with the patient. Consent form was signed, questions answered. Patient would like to go home tonight. Precautions to take it easy the next week were discussed with the patient. She understands she may have some bleeding from the uterine manipulator. Time Spent With Patient Time with patient: 25 - 35 minutes Quality VTE Deep Vein Thrombosis/Pulmonary Embolism Present on Admission: No
[2018-09-08] MEDS: SODIUM CHLORIDE 0.9% 1,000 ML 100 ML IV (17:01)
--- NOTE | 2018-09-08 19:25 | PC.NURSE ---
Addendum entered by Basia Barrett R.N. 09/08/18 22:23: IVF infusing, tolerating PO intake. No nausea or vomiting. Original Note: Addendum entered by Basia Barrett R.N. 09/08/18 21:48: Return post operatively to at 2140 in stable condition. Sleepy but arouses easily. VSS and afebrile. Original Note: Addendum entered by Basia Barrett R.N. 09/08/18 19:37: Patient transferred to OR via hospital bed with RN, at bedside. Patients has her ring. RN aware regarding new prescription medication required. Patient awake, alert, VSS and pain adequately controlled. Original Note: 1700 Randee shift note: Patient arrived from ED in stable condition. IVF initiated and VSS. Last PO intake at 0200 on 1031. No c/o nausea/vomiting or pain or arrival. A & O x 3, ambulating with stand by assist. Remain NPO. Oriented to room and environment. 1919: Notified Dr. Lloyd regarding increasing pain, obtained order for IV pain control. Updated by Trent ALICIA regarding surgical time, 19:30-1999. at bedside providing supportive care.
[2018-09-08] MEDS: LACTATED RINGERS 1,000 ML 42 ML IV ×2 (19:45→20:48)
--- NOTE | 2018-09-08 20:12 | SUR.OPER ---
Lithotomy on padded OR bed, head on pillow, arms secured on padded arm boards at <90 degrees abduction. Legs secured in padded yellow fins stirrups.
[2018-09-08] MEDS: BUPIVACAINE 0.5% (PF) VIAL 30 ML INJ (20:16)
--- NOTE | 2018-09-08 21:13 | PM.OP.1 ---
Operative Date/Time/Diagnoses Date of procedure: 09/08/18 Time of procedure: 21:13 Pre-op diagnosis: Dermoid right ovary with possible torsion Post-op diagnosis: other (Dermoid but no torsion) Procedure & Clinicians Procedure: Laparoscopic right ovarian cystectomy Same procedure as scheduled: Yes Indications: Dermoid cyst seen on CT scan and ultrasound with possible torsion Surgeon: Crista Lloyd Click Yes if Unassisted: Yes Anesthesia Type: General Operative Notes Findings: Right ovarian dermoid. Normal tubes and uterus. Normal right ovary. Normal bowel surface. Normal liver edge. No internal hernias. No endometriosis. No scar tissue. Closure Type: primary Specimen(s): other (Right ovarian cyst) Estimated Blood Loss (mL): 5 Blood products transfused: none Procedure in detail: Patient was brought to the operating room where she underwent general anesthesia. She was placed in low yellowfin stirrups and prepped and draped in usual sterile fashion. Antibiotics were not indicated. Pulsatile stockings were in place and functional. Warming was with blankets. A single-tooth tenaculum was placed on the anterior lip of the cervix. The area of the incisions were injected with half percent Marcaine with epinephrine. An incision was made in the umbilicus with a scalpel. Dissection was undertaken to the fascial layer which was incised transversely and held with 0 Polysorb sutures x2. The peritoneum was entered bluntly and the Ann cannula was placed in the abdomen and tied in place. The abdomen was insufflated to 4 L of CO2. 2 5 mm trochars were placed in the right and left lower quadrant under direct visualization after incising the skin. There did not appear to be any damage with placement of the trocars. An incision was made in the right ovarian wall with cautery attached scissors. Dissection was undertaken of the cyst it from the normal ovarian tissue. During the dissection the cyst was ruptured. The cyst was placed in an Endo-Catch bag that had been placed down the Ann. The cyst was removed from the abdomen. The abdomen was copiously irrigated and adequate hemostasis was noted. The CO2 was allowed to escape from the abdomen. The trochars were removed. Skin was closed with 4-0 nylon. The patient went to recovery room in good condition. Complications: none Condition: stable Disposition: same day surgery Plan for aftercare: Home when awake and stable
--- NOTE | 2018-09-08 21:20 | PC.NURSE ---
Upon admission, pt was adamant was discharging to home following surgery this evening. Pt desires valuables to be locked in hospital safe and informed pt policy re home meds. To insure pt would have access to home meds upon discharge this evening, home meds with knowledge of supervisor detasseling crew, Chika, were secured in safe along with other valuables. Word was received from PACU pt would be staying overnight. At this time, pt's epi pens x 3 along with po tablets x 2 were sent to hospital pharmacy with inpatient pharmacist. Other valuables: wallet with numerous cards inside, pepper spray, knife and bracelet were resecured in hospital safe. Witnessed by supervisor detasseling crew, Chika.
[2018-09-08] MEDS: KETOROLAC 30 MG/ML VIAL IV (21:25)
--- NOTE | 2018-09-09 00:58 | PC.NURSE ---
Back Gray Cloth Washer Note: 0000: Awake, watching TV. Pt states she is comfortable and not having pain. Pt concerned about her home medications, particularly her Synthroid, and is aware these medications were not ordered by her surgeon. She agreed to wait until morning to solve this problem. Lap incision sites (3) have bandaids intact, with small amt serosanguinous drainage. Her collin pad is without any drainage. IV in place in rt AC with NS infusing at 100cc/hr.
[2018-09-09 03:00] VITALS: BP 120/78; PULSE 106; RESP 16; TEMP 37.2; O2SAT 96
[2018-09-09] MEDS: OXYCODONE/ACETAMINOPHEN 5/325 TABLET 2 TAB PO (04:09)
[2018-09-09] MEDS: SODIUM CHLORIDE 0.9% 1,000 ML 100 ML IV (04:11)
--- NOTE | 2018-09-09 08:06 | PC.NURSE ---
Patient extremely eager to be discharged to home this morning. Paper work reviewed with patient, patient states she will call to schedule follow up appointment for 1 week. She reports her took prescriptions home last night to fill for her. Patient ambulatory in room, voiding without difficulty, bandaid dressings intact mild drainage noted. Patient instructed to call MD with questions or concerns. Home belongings and home medications returned to patient. Patient refused wheelchair out, picked her up and discharged to home.
--- NOTE | 2018-09-10 09:42 | PM.DS.1 ---
History of Present Illness Date Patient Seen: 09/09/18 Time Patient Seen: 06:42 Chief complaint: PELVIC PAIN,BLEEDING UNEXPECTED Narrative: Patient was admitted through the emergency room for possible torsion of a right dermoid cyst. Patient underwent laparoscopic removal of the ovarian cyst and there was no torsion at the time. Patient was discharged when fully recovered which ended up being several hours due to the time the surgery ended. Discharge Providers Date of admission: 09/08/18 15:21 Discharge provider: Crista Lloyd MD Discharge Date: 09/09/18 Summary Discharge Diagnosis: Right ovarian dermoid cyst Hospital Course: Patient was taken to surgery from the emergency room for right ovarian dermoid cyst with the possibility of torsion. She did not have a torsion. She underwent a right ovarian cystectomy. She was discharged as an outpatient surgery however due to the time at the end of the surgery she ended up staying until the morning. She was ambulatory. Tolerating regular diet. Pain under control. Her abdomen was soft and appropriately tender. Her incisions were clean dry and intact. Exam Vital Signs (past 8 hours): Oxygen Delivery Method Room Air Oxygen Flow Rate 2 Objective Labs Result Diagrams: 09/08/18 12:55 09/08/18 12:55 Discharge Plan Discharge Plan Patient Disposition: Home Discharge Med Rec/Prescriptions Prescriptions: New ibuprofen 600 mg tablet 600 mg PO QID PRN (Reason: pain) Qty: 30 RF: 0 oxycodone-acetaminophen 5-300 mg tablet 2 tab PO Q4-6H PRN (Reason: pain) Qty: 40 RF: 0 oxycodone-acetaminophen 5-325 mg tablet 2 tab PO Q4-6H PRN (Reason: pain) Qty: 40 RF: 0 No Action levothyroxine [Synthroid] 50 mcg tablet 1 tab PO DAILY RF: 0 gabapentin 300 mg capsule 1 cap PO TID RF: 0 montelukast 10 mg tablet 10 mg PO DAILY RF: 0 epinephrine 0.3 mg/0.3 mL auto-injector 1 dose IM PRN PRN (Reason: Allergic Reaction) RF: 0 albuterol sulfate [ProAir HFA] 90 mcg/actuation HFA aerosol inhaler 1 puff Inhalation PRN PRN (Reason: Shortness Of Breath) RF: 0 fluticasone-salmeterol [Advair HFA] 45-21 mcg/actuation HFA aerosol inhaler 1 puff Inhalation BID RF: 0 cetirizine [Zyrtec] 10 mg Tablet 1 tab PO DAILY PRN (Reason: Allergy Symptoms) RF: 0 fluticasone [Flonase Allergy Relief] 50 mcg/actuation [place],Suspension 1 spray Intranasal PRN PRN (Reason: Allergy Symptoms) RF: 0 [id number]-[id number] [Excedrin Extra Strength] 250-250-65 mg Tablet 1 tab PO PRN PRN (Reason: pain) RF: 0 Follow up/Referrals: Crista Lloyd MD [Physician] - 1 Week (please call & schedule incision check appointment with Dr. Kamara or Estela at [facility] [phone] for 1 week from discharge) Provider Discharge Instructions Diet: Regular Activity: As tolerated Skin/Wound/Dressing Care Report to your healthcare provider any signs of infection, such as:: chills, fever, increased pain and unusual drainage Dressing: Leave bandaids on for 24 hr. After removing Band-Aid leave Steri-Strips in place for 1 week. May get wet just pat dry. Visit Report/Discharge Packet Instructions: Oxycodone, Ibuprofen Visit Report Forms: Stroke Signs & Symptoms Discharge Data Attending Provider: Crista Lloyd Admit Date/Time: 09/08/18 15:21 Discharges patient from system. Discharge Date/Time: 09/09/18 08:00 Quality VTE Deep Vein Thrombosis/Pulmonary Embolism Present on Admission: No
--- NOTE | 2018-09-10 09:46 | P.DS_ITS ---
History of Present Illness Date Patient Seen: 09/09/18 Time Patient Seen: 06:42 Chief complaint: PELVIC PAIN,BLEEDING UNEXPECTED Narrative: Patient was admitted through the emergency room for possible torsion of a right dermoid cyst. Patient underwent laparoscopic removal of the ovarian cyst and there was no torsion at the time. Patient was discharged when fully recovered which ended up being several hours due to the time the surgery ended. Discharge Providers Date of admission: 09/08/18 15:21 Discharge provider: Crista Lloyd MD Discharge Date: 09/09/18 Summary Discharge Diagnosis: Right ovarian dermoid cyst Hospital Course: Patient was taken to surgery from the emergency room for right ovarian dermoid cyst with the possibility of torsion. She did not have a torsion. She underwent a right ovarian cystectomy. She was discharged as an outpatient surgery however due to the time at the end of the surgery she ended up staying until the morning. She was ambulatory. Tolerating regular diet. Pain under control. Her abdomen was soft and appropriately tender. Her incisions were clean dry and intact. Exam Vital Signs (past 8 hours): Oxygen Delivery Method Room Air Oxygen Flow Rate 2 Objective Labs Result Diagrams: 09/08/18 12:55 09/08/18 12:55 Discharge Plan Discharge Plan Patient Disposition: Home Discharge Med Rec/Prescriptions Prescriptions: New ibuprofen 600 mg tablet 600 mg PO QID PRN (Reason: pain) Qty: 30 RF: 0 oxycodone-acetaminophen 5-300 mg tablet 2 tab PO Q4-6H PRN (Reason: pain) Qty: 40 RF: 0 oxycodone-acetaminophen 5-325 mg tablet 2 tab PO Q4-6H PRN (Reason: pain) Qty: 40 RF: 0 No Action levothyroxine [Synthroid] 50 mcg tablet 1 tab PO DAILY RF: 0 gabapentin 300 mg capsule 1 cap PO TID RF: 0 montelukast 10 mg tablet 10 mg PO DAILY RF: 0 epinephrine 0.3 mg/0.3 mL auto-injector 1 dose IM PRN PRN (Reason: Allergic Reaction) RF: 0 albuterol sulfate [ProAir HFA] 90 mcg/actuation HFA aerosol inhaler 1 puff Inhalation PRN PRN (Reason: Shortness Of Breath) RF: 0 fluticasone-salmeterol [Advair HFA] 45-21 mcg/actuation HFA aerosol inhaler 1 puff Inhalation BID RF: 0 cetirizine [Zyrtec] 10 mg Tablet 1 tab PO DAILY PRN (Reason: Allergy Symptoms) RF: 0 fluticasone [Flonase Allergy Relief] 50 mcg/actuation [place],Suspension 1 spray Intranasal PRN PRN (Reason: Allergy Symptoms) RF: 0 [id number]-rqdlngqdukucx-kjxzcijf [Excedrin Extra Strength] 250-250-65 mg Tablet 1 tab PO PRN PRN (Reason: pain) RF: 0 Follow up/Referrals: Crista Lloyd MD [Physician] - 1 Week (please call & schedule incision check appointment with Dr. Kamara or Estela at [facility] [phone] for 1 week from discharge) Provider Discharge Instructions Diet: Regular Activity: As tolerated Skin/Wound/Dressing Care Report to your healthcare provider any signs of infection, such as:: chills, fever, increased pain and unusual drainage Dressing: Leave bandaids on for 24 hr. After removing Band-Aid leave Steri- Strips in place for 1 week. May get wet just pat dry. Visit Report/Discharge Packet Instructions: Oxycodone, Ibuprofen Visit Report Forms: Stroke Signs & Symptoms Discharge Data Attending Provider: Crista Lloyd Admit Date/Time: 09/08/18 15:21 Discharges patient from system. Discharge Date/Time: 09/09/18 08:00 Quality VTE Deep Vein Thrombosis/Pulmonary Embolism Present on Admission: No
== END 2018-09-09 08:00 | disposition home or self-care (01) ==
LOC: ED 15:20 → AC 15:51
PROVIDERS: Admitting Provider Specialist; Emergency Provider Nurse Practitioner Family; Visit Provider Specialist
PROC: (CPT 58662; principal; 2018-09-08 18:00)
DX: R10.2 Pelvic and perineal pain (principal); E66.9 Obesity, unspecified; J45.909 Unspecified asthma, uncomplicated; D27.0 Benign neoplasm of right ovary; Z68.41 Body mass index [BMI] 40.0-44.9, adult
CPT/HCPCS: 58662; 36415; 74177; 76830; 76856; 80053; 81003; 81025; 83690; 85025; 85610; 85730; 88307; 96361; 96374; 96375; 99283; 99285; G0378; J0330; J1100; J1885; J2270; J2405; J2704; J3010

== ENCOUNTER → 2018-10-11 12:05 | Outpatient (CLI) | payer OTHER, SELFPAY ==
[2018-09-08 16:19] VITALS: BMI 42.6
[2018-10-11 12:43] LABS: Add Manual Diff / Slide Review NO; Basophils Percent Auto 0.7 % (0-2); Eosinophils Percent Auto 1.6 % (2-4); Hematocrit 38.2 % (36-46); Hemoglobin 12.9 g/dL (12.0-16.0); Lymphocytes Percent Auto 36.2 % (25-40); Mean Corpuscular HGB Conc 33.8 % (30-36); Mean Corpuscular Hemoglobin 27.4 PG (26-34); Mean Corpuscular Volume 80.8 fL (80-100); Monocytes Percent Auto 4.2 % (3-14); Neutrophils Absolute Auto 6800 /uL (3000-5900); Neutrophils Percent Auto 57.3 % (50-75); Platelet Count 440 X10^3/uL (150-400); Red Blood Cell Count 4.72 X10^6/uL (4.0-5.2); White Blood Cell Count 11.9 X10^3/uL (4.5-11.0)
== END ==
PROVIDERS: Visit Provider Specialist
DX: R10.9 Unspecified abdominal pain (principal)
CPT/HCPCS: 36415; 85025

== ENCOUNTER 2019-02-19 03:18 | Emergency (ER) | payer OTHER, SELFPAY ==
[2018-09-08 16:19] VITALS: BMI 42.6
[2019-02-19 03:33] VITALS: BP 160/86; PULSE 82; RESP 15; TEMP 37.2; O2SAT 99
[2019-02-19 03:35] VITALS: BP 160/86; PULSE 82; RESP 15; TEMP 37.2; O2SAT 99
--- NOTE | 2019-02-19 03:40 | ED.ALLEREA ---
HPI - Allergic Reaction General Chief complaint: Allergic Reaction Stated complaint: used epi pen at 0052/poss allergic reaction Time Seen by Provider: 02/19/19 03:37 Source: patient Mode of arrival: ambulatory Limitations: no limitations History of Present Illness HPI narrative: Patient is a 33-year-old female who presents with on chest tightness. She has multiple allergies. She takes albuterol Advair and lots of other medications for her allergies. She actually took Benadryl today after her neighbor mode the grass. 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 She feels like her chest gets tight. She actually gave herself an EpiPen at around midnight she said it helped for about an hour however it started getting bad again. She has no rash no vomiting or diarrhea. He says usually albuterol does help she does not yet have a nebulizer machine at home but she is working on getting 1. MD complaint: allergic reaction Related Data Home Medications Medication Instructions Recorded Confirmed albuterol sulfate [ProAir HFA] 1 puff INHALATION PRN PRN 09/08/18 10/11/18 [id number]-vkkewwztairns-urqhjwvz 1 tab PO PRN PRN 09/08/18 10/11/18 [Excedrin Extra Strength] cetirizine [Zyrtec] 1 tab PO DAILY PRN 09/08/18 10/11/18 epinephrine 1 dose IM PRN PRN 09/08/18 10/11/18 fluticasone propion-salmeterol 1 puff INHALATION BID 09/08/18 10/11/18 [Advair HFA] fluticasone propionate [Flonase 1 spray INTRANASAL PRN PRN 09/08/18 10/11/18 Allergy Relief] gabapentin 1 cap PO TID 09/08/18 10/11/18 levothyroxine [Synthroid] 1 tab PO DAILY 09/08/18 10/11/18 montelukast 10 mg PO DAILY 09/08/18 10/11/18 Previous Rx's Medication Instructions Recorded ibuprofen 600 mg PO QID PRN #30 tab 09/08/18 oxycodone-acetaminophen 2 tab PO Q4-6H PRN #40 tab 09/08/18 oxycodone-acetaminophen 2 tab PO Q4-6H PRN #40 tab 09/08/18 prednisone 40 mg PO DAILY #8 tab 02/19/19 Allergies Allergy/AdvReac Type Severity Reaction Status Date / Time No Known Drug Allergies Allergy Verified 10/11/18 11:55 Review of Systems Review of Systems ROS Unobtainable: All systems reviewed & are unremarkable except as noted in HPI and below Constitutional Denies chills, Denies fever(s), Denies lethargy and Denies weakness Eyes Denies change in vision, Denies eye discharge, Denies irritation and Denies loss of vision ENT Ears, Nose, Mouth, and Throat: Denies hoarseness and Denies lip swelling Cardiovascular Reports chest pain (Tightness) Gastrointestinal Gastrointestinal: Denies abdominal pain, Denies change in bowel habits, Denies diarrhea, Denies nausea and Denies vomiting Musculoskeletal Denies back pain, Denies muscle weakness, Denies numbness and Denies tingling Integumentary/Breasts Denies pruritus, Denies erythema, Denies rash and Denies wounds Neurologic Denies loss of vision, Denies numbness, Denies tingling and Denies weakness Allergic/Immunologic Denies lip swelling [facility] Medical History (Updated 02/19/19 @ 04:28 by Bibi Sanchez DO) Dermoid tumor (Acute) Migraine headache with aura (Chronic) Surgical History History of tonsillectomy (Inactive) S/P wrist surgery (Inactive) Social History household members: spouse Smoking Status: Never smoker Social History household members: spouse Smoking Status: Never smoker Exam Initial Vital Signs Initial Vital Signs: Vital Signs Temperature 99 F 02/19/19 03:33 Pulse Rate 82 02/19/19 03:33 Respiratory Rate 15 02/19/19 03:33 Blood Pressure 160/86 H 02/19/19 03:33 Pulse Oximetry 99 02/19/19 03:33 GENERAL: Overweight young female no acute distress and in no acute distress. HEENT: Head atraumatic,EOMI, pupils reactive, no swelling of lips or tongue no stridor CARDIOVASCULAR: Regular rate and rhythm without murmurs, rubs or gallops. RESPIRATORY: Breath sounds equal bilaterally, no wheezes rales or rhonchi. ABDOMEN: Soft, nontender. Normoactive bowel sounds all 4 quadrants. No guarding or rebound. EXTREMITIES: Normal range of motion, no clubbing or edema. Neurovascularly intact NEUROLOGICAL: Alert and oriented x4. SKIN: Warm, dry, no laceration, no petechiae, no rashes or lesions. Course Orders Ordered: Discontinued Medications Albuterol (Ventolin) 2.5 mg INH NOW ONE Stop: 02/19/19 03:48 Last Admin: 02/19/19 03:57 Dose: 2.5 mg Prednisone (Deltasone) 40 mg PO NOW ONE Stop: 02/19/19 03:48 Last Admin: 02/19/19 03:57 Dose: 40 mg Vital Signs - 8 hr 02/19/19 03:33 02/19/19 03:35 02/19/19 04:00 Temperature 99 F 99 F Pulse Rate 82 82 74 Respiratory Rate 15 15 20 Blood Pressure 160/86 H Blood Pressure [Right Arm] 160/86 H Pulse Oximetry 99 99 99 MDM - Allergic Reaction MDM Narrative Medical decision making narrative: No rash no signs of angioedema or anaphylaxis. Feeling much better after albuterol prednisone would like tomorrow off work. Is overall feeling better. Discharge Plan Departure Patient Disposition: Home Clinical Impression: Allergic reaction Qualifiers: Encounter type: initial encounter Qualified Code(s): T78.40XA - Allergy, unspecified, initial encounter Instructions: DI for Anaphylaxis Activity Restrictions/Additional Instructions: *You have been diagnosed with allergic reaction *What to do: *Continue to take medications as directed Prednisone 40 mg once a day for 4 days *Follow up with your primary care provider in 2-3 days *Return to ER if you should have lip swelling tongue swelling inability to swallow difficulty breathing or any new, worsening or concerning symptoms Prescriptions: New prednisone 20 mg tablet 40 mg PO DAILY Qty: 8 RF: 0 No Action levothyroxine [Synthroid] 50 mcg tablet 1 tab PO DAILY RF: 0 gabapentin 300 mg capsule 1 cap PO TID RF: 0 montelukast 10 mg tablet 10 mg PO DAILY RF: 0 epinephrine 0.3 mg/0.3 mL auto-injector 1 dose IM PRN PRN (Reason: Allergic Reaction) RF: 0 albuterol sulfate [ProAir HFA] 90 mcg/actuation HFA aerosol inhaler 1 puff Inhalation PRN PRN (Reason: Shortness Of Breath) RF: 0 fluticasone propion-salmeterol [Advair HFA] 45-21 mcg/actuation HFA aerosol inhaler 1 puff Inhalation BID RF: 0 cetirizine [Zyrtec] 10 mg Tablet 1 tab PO DAILY PRN (Reason: Allergy Symptoms) RF: 0 fluticasone propionate [Flonase Allergy Relief] 50 mcg/actuation [place],Suspension 1 spray Intranasal PRN PRN (Reason: Allergy Symptoms) RF: 0 rukvbhp-vcyzmendxlvxi-nxfwubom [Excedrin Extra Strength] 250-250-65 mg Tablet 1 tab PO PRN PRN (Reason: pain) RF: 0 ibuprofen 600 mg tablet 600 mg PO QID PRN (Reason: pain) Qty: 30 RF: 0 oxycodone-acetaminophen 5-300 mg tablet 2 tab PO Q4-6H PRN (Reason: pain) Qty: 40 RF: 0 oxycodone-acetaminophen 5-325 mg tablet 2 tab PO Q4-6H PRN (Reason: pain) Qty: 40 RF: 0 Stand Alone Forms: Work Release Note
--- NOTE | 2019-02-19 03:54 | ED_ITS ---
HPI - Allergic Reaction General Chief complaint: Allergic Reaction Stated complaint: used epi pen at 0052/poss allergic reaction Time Seen by Provider: 02/19/19 03:37 Source: patient Mode of arrival: ambulatory Limitations: no limitations History of Present Illness HPI narrative: Patient is a 33-year-old female who presents with on chest tightness. She has multiple allergies. She takes albuterol Advair and lots of other medications for her allergies. She actually took Benadryl today after her neighbor mode the grass. 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 She feels like her chest gets tight. She actually gave herself an EpiPen at around midnight she said it helped for about an hour however it started getting bad again. She has no rash no vomiting or diarrhea. He says usually albuterol does help she does not yet have a nebulizer machine at home but she is working on getting 1. MD complaint: allergic reaction Related Data Home Medications Medication Instructions Recorded Confirmed albuterol sulfate [ProAir HFA] 1 puff INHALATION PRN PRN 09/08/18 10/11/18 [id number] 1 tab PO PRN PRN 09/08/18 10/11/18 [Excedrin Extra Strength] cetirizine [Zyrtec] 1 tab PO DAILY PRN 09/08/18 10/11/18 epinephrine 1 dose IM PRN PRN 09/08/18 10/11/18 fluticasone propion-salmeterol 1 puff INHALATION BID 09/08/18 10/11/18 [Advair HFA] fluticasone propionate [Flonase 1 spray INTRANASAL PRN PRN 09/08/18 10/11/18 Allergy Relief] gabapentin 1 cap PO TID 09/08/18 10/11/18 levothyroxine [Synthroid] 1 tab PO DAILY 09/08/18 10/11/18 montelukast 10 mg PO DAILY 09/08/18 10/11/18 Previous Rx's Medication Instructions Recorded ibuprofen 600 mg PO QID PRN #30 tab 09/08/18 oxycodone-acetaminophen 2 tab PO Q4-6H PRN #40 tab 09/08/18 oxycodone-acetaminophen 2 tab PO Q4-6H PRN #40 tab 09/08/18 prednisone 40 mg PO DAILY #8 tab 02/19/19 Allergies Allergy/AdvReac Type Severity Reaction Status Date / Time No Known Drug Allergies Allergy Verified 10/11/18 11:55 Review of Systems Review of Systems ROS Unobtainable: All systems reviewed & are unremarkable except as noted in HPI and below Constitutional Denies chills, Denies fever(s), Denies lethargy and Denies weakness Eyes Denies change in vision, Denies eye discharge, Denies irritation and Denies loss of vision ENT Ears, Nose, Mouth, and Throat: Denies hoarseness and Denies lip swelling Cardiovascular Reports chest pain (Tightness) Gastrointestinal Gastrointestinal: Denies abdominal pain, Denies change in bowel habits, Denies diarrhea, Denies nausea and Denies vomiting Musculoskeletal Denies back pain, Denies muscle weakness, Denies numbness and Denies tingling Integumentary/Breasts Denies pruritus, Denies erythema, Denies rash and Denies wounds Neurologic Denies loss of vision, Denies numbness, Denies tingling and Denies weakness Allergic/Immunologic Denies lip swelling [facility] Medical History (Updated 02/19/19 @ 04:28 by Bibi Sanchez DO) Dermoid tumor (Acute) Migraine headache with aura (Chronic) Surgical History History of tonsillectomy (Inactive) S/P wrist surgery (Inactive) Social History household members: spouse Smoking Status: Never smoker Social History household members: spouse Smoking Status: Never smoker Exam Initial Vital Signs Initial Vital Signs: Vital Signs Temperature 99 F 02/19/19 03:33 Pulse Rate 82 02/19/19 03:33 Respiratory Rate 15 02/19/19 03:33 Blood Pressure 160/86 H 02/19/19 03:33 Pulse Oximetry 99 02/19/19 03:33 GENERAL: Overweight young female no acute distress and in no acute distress. HEENT: Head atraumatic,EOMI, pupils reactive, no swelling of lips or tongue no stridor CARDIOVASCULAR: Regular rate and rhythm without murmurs, rubs or gallops. RESPIRATORY: Breath sounds equal bilaterally, no wheezes rales or rhonchi. ABDOMEN: Soft, nontender. Normoactive bowel sounds all 4 quadrants. No guarding or rebound. EXTREMITIES: Normal range of motion, no clubbing or edema. Neurovascularly intact NEUROLOGICAL: Alert and oriented x4. SKIN: Warm, dry, no laceration, no petechiae, no rashes or lesions. Course Orders Ordered: Discontinued Medications Albuterol (Ventolin) 2.5 mg INH NOW ONE Stop: 02/19/19 03:48 Last Admin: 02/19/19 03:57 Dose: 2.5 mg Prednisone (Deltasone) 40 mg PO NOW ONE Stop: 02/19/19 03:48 Last Admin: 02/19/19 03:57 Dose: 40 mg Vital Signs - 8 hr 02/19/19 03:33 02/19/19 03:35 02/19/19 04:00 Temperature 99 F 99 F Pulse Rate 82 82 74 Respiratory Rate 15 15 20 Blood Pressure 160/86 H Blood Pressure [Right Arm] 160/86 H Pulse Oximetry 99 99 99 MDM - Allergic Reaction MDM Narrative Medical decision making narrative: No rash no signs of angioedema or anaphylaxis. Feeling much better after albuterol prednisone would like tomorrow off work. Is overall feeling better. Discharge Plan Departure Patient Disposition: Home Clinical Impression: Allergic reaction Qualifiers: Encounter type: initial encounter Qualified Code(s): T78.40XA - Allergy, unspecified, initial encounter Instructions: DI for Anaphylaxis Activity Restrictions/Additional Instructions: *You have been diagnosed with allergic reaction *What to do: *Continue to take medications as directed Prednisone 40 mg once a day for 4 days *Follow up with your primary care provider in 2-3 days *Return to ER if you should have lip swelling tongue swelling inability to swallow difficulty breathing or any new, worsening or concerning symptoms Prescriptions: New prednisone 20 mg tablet 40 mg PO DAILY Qty: 8 RF: 0 No Action levothyroxine [Synthroid] 50 mcg tablet 1 tab PO DAILY RF: 0 gabapentin 300 mg capsule 1 cap PO TID RF: 0 montelukast 10 mg tablet 10 mg PO DAILY RF: 0 epinephrine 0.3 mg/0.3 mL auto-injector 1 dose IM PRN PRN (Reason: Allergic Reaction) RF: 0 albuterol sulfate [ProAir HFA] 90 mcg/actuation HFA aerosol inhaler 1 puff Inhalation PRN PRN (Reason: Shortness Of Breath) RF: 0 fluticasone propion-salmeterol [Advair HFA] 45-21 mcg/actuation HFA aerosol inhaler 1 puff Inhalation BID RF: 0 cetirizine [Zyrtec] 10 mg Tablet 1 tab PO DAILY PRN (Reason: Allergy Symptoms) RF: 0 fluticasone propionate [Flonase Allergy Relief] 50 mcg/actuation [place],Suspension 1 spray Intranasal PRN PRN (Reason: Allergy Symptoms) RF: 0 [id number] [Excedrin Extra Strength] 250-250-65 mg Tablet 1 tab PO PRN PRN (Reason: pain) RF: 0 ibuprofen 600 mg tablet 600 mg PO QID PRN (Reason: pain) Qty: 30 RF: 0 oxycodone-acetaminophen 5-300 mg tablet 2 tab PO Q4-6H PRN (Reason: pain) Qty: 40 RF: 0 oxycodone-acetaminophen 5-325 mg tablet 2 tab PO Q4-6H PRN (Reason: pain) Qty: 40 RF: 0 Stand Alone Forms: Work Release Note
[2019-02-19] MEDS: ALBUTEROL 2.5 MG/3 ML NEB (ADULT) INH (03:57)
[2019-02-19] MEDS: predniSONE 20 MG TABLET 40 MG PO (03:57)
[2019-02-19 04:00] VITALS: PULSE 74; RESP 20; O2SAT 99
[2019-02-19 04:36] VITALS: BP 146/99; PULSE 84; RESP 18; O2SAT 99
== END 2019-02-19 04:38 | disposition home or self-care (01) ==
PROVIDERS: Emergency Provider Emergency Medicine
DX: T78.40XA Allergy, unspecified, initial encounter (principal); R06.09 Other forms of dyspnea
CPT/HCPCS: 94640; 99282; 99283; J7613

== ENCOUNTER 2019-03-08 17:50 | Emergency (ER) | payer OTHER, SELFPAY ==
[2018-09-08 16:19] VITALS: BMI 42.6
[2019-03-08 17:53] VITALS: BP 140/91; PULSE 77; RESP 18; TEMP 36.9; O2SAT 98
[2019-03-08] MEDS: SODIUM CHLORIDE 0.9% 1,000 ML 1000 ML IV (19:10)
[2019-03-08] MEDS: diphenhydrAMINE 50 MG/ML VIAL IV (19:10)
[2019-03-08] MEDS: methylPREDNISolone 125 MG/2 ML VIAL IV (19:10)
[2019-03-08] MEDS: ALBUTEROL 2.5 MG/3 ML NEB (ADULT) INH (19:46)
[2019-03-08 19:57] VITALS: PULSE 70; RESP 18; O2SAT 98
[2019-03-08] MEDS: EPINEPHrine 1 MG/ML AMPUL 0.3 MG IM (20:06)
[2019-03-08] MEDS: ONDANSETRON 4 MG/2 ML INJ IV (20:30)
[2019-03-08 21:48] VITALS: BP 135/80; PULSE 86; RESP 14; O2SAT 98
--- NOTE | 2019-03-08 22:08 | ED_ITS ---
HPI - Allergic Reaction <Elizabeth Kaye, [employer]-BC - Last Filed: 03/08/19 22:15> General Chief complaint: Allergic Reaction Stated complaint: REACTION TO ALLERGY SHOTS Time Seen by Provider: 03/08/19 19:00 Source: patient Mode of arrival: ambulatory Limitations: no limitations History of Present Illness HPI narrative: The patient is a 33-year-old female with history of anaphylaxis well known to this department who presents with a chief complaint of allergic reaction. She states that she has tightness in her chest and has been having symptoms of an allergic reaction since yesterday at 3:00 p.m. when she had allergy shots. She denies any hives. She does complain of shortness of breath, which she states is standard for her allergic reactions. She denies any oropharyngeal swelling. She states she feels very tight. She did not use her EpiPen as she only has 1 left Related Data Home Medications Medication Instructions Recorded Confirmed albuterol sulfate [ProAir HFA] 1 puff INHALATION PRN PRN 09/08/18 10/11/18 [id number] 1 tab PO PRN PRN 09/08/18 10/11/18 [Excedrin Extra Strength] cetirizine [Zyrtec] 1 tab PO DAILY PRN 09/08/18 10/11/18 epinephrine 1 dose IM PRN PRN 09/08/18 10/11/18 fluticasone propion-salmeterol 1 puff INHALATION BID 09/08/18 10/11/18 [Advair HFA] fluticasone propionate [Flonase 1 spray INTRANASAL PRN PRN 09/08/18 10/11/18 Allergy Relief] gabapentin 1 cap PO TID 09/08/18 10/11/18 levothyroxine [Synthroid] 1 tab PO DAILY 09/08/18 10/11/18 montelukast 10 mg PO DAILY 09/08/18 10/11/18 Previous Rx's Medication Instructions Recorded ibuprofen 600 mg PO QID PRN #30 tab 09/08/18 oxycodone-acetaminophen 2 tab PO Q4-6H PRN #40 tab 09/08/18 oxycodone-acetaminophen 2 tab PO Q4-6H PRN #40 tab 09/08/18 prednisone 40 mg PO DAILY #8 tab 02/19/19 epinephrine [EpiPen 2-Shahzad] 0.3 mg IM Q15M PRN 1 Days #1 each 03/08/19 ondansetron 4 mg PO TID PRN 5 Days #20 tab 03/08/19 prednisone 50 mg PO DAILY #5 tab 03/08/19 Allergies Allergy/AdvReac Type Severity Reaction Status Date / Time No Known Drug Allergies Allergy Verified 10/11/18 11:55 Review of Systems <REUBEN Davis - Last Filed: 03/08/19 22:15> Review of Systems GENERAL: Denies chills, fatigue, malaise, fever, sweats. HEENT: Denies sinus pain, ear pain, sore throat, difficulty swallowing, dizziness. RESPIRATORY: See HPI CARDIOVASCULAR: Denies chest pain, palpitations, orthopnea, edema, GASTROINTESTINAL: Denies nausea, vomiting, abdominal pain, diarrhea, constipation, melena. : Denies dysuria, frequency, incontinence, hematuria, urinary retention. MUSCULOSKELETAL: denies weakness, joint pain, or bony pain SKIN: Denies rash, skin lesions, or other NEUROLOGIC: Denies weakness, headache, numbness, change in speech, confusion, seizures, incoordination. PSYCHIATRIC: No concerning psychosocial issues. 12 point review of systems is negative except for those stated above PFSH <REUBEN Davis - Last Filed: 03/08/19 22:15> Medical History Dermoid tumor (Acute) Migraine headache with aura (Chronic) Surgical History History of tonsillectomy (Inactive) S/P wrist surgery (Inactive) Social History household members: spouse Smoking Status: Never smoker Social History household members: spouse Smoking Status: Never smoker Exam <REUBEN Davis - Last Filed: 03/08/19 22:15> Narrative Exam Narrative: GENERAL: Obese female sitting on stretcher in no acute distress HEAD: Atraumatic. Normocephalic. No temporal or scalp tenderness. EYES: Pupils equal round and reactive. Extraocular motions intact. No scleral icterus. No injection or drainage. ENT: Nose without bleeding, purulent drainage or septal hematoma. Throat without erythema, tonsillar hypertrophy or exudate. Uvula midline. Airway patent. NECK: Trachea midline. No JVD or lymphadenopathy. Supple, nontender, no meningeal signs. CARDIOVASCULAR: Regular rate and rhythm without murmurs, gallops, or rubs. RESPIRATORY: Clear to auscultation. Breath sounds equal bilaterally expiratory wheezes bilaterally. No stridor. No increased respiratory effort. GASTROINTESTINAL: Abdomen soft, non-tender, nondistended. No hepato- splenomegaly, or palpable masses. No guarding. active bowel sounds all 4 quadrants EXTREMITIES: No clubbing, cyanosis, or edema. No joint tenderness, effusion, or edema noted. BACK: Nontender without deformity or crepitance. No flank tenderness. NEURO: AOx3. SKIN: No rash or erythema. Initial Vital Signs Initial Vital Signs: Vital Signs Temperature 98.5 F 03/08/19 17:53 Pulse Rate 77 03/08/19 17:53 Respiratory Rate 18 03/08/19 17:53 Blood Pressure 140/91 H 03/08/19 17:53 Pulse Oximetry 98 03/08/19 17:53 <Dallas Jiang DO - Last Filed: 03/08/19 22:24> Initial Vital Signs Initial Vital Signs: Vital Signs Temperature 98.5 F 03/08/19 17:53 Pulse Rate 77 03/08/19 17:53 Respiratory Rate 18 03/08/19 17:53 Blood Pressure 140/91 H 03/08/19 17:53 Pulse Oximetry 98 03/08/19 17:53 Course <LORNE Davis-BC - Last Filed: 03/08/19 22:15> Orders Ordered: Discontinued Medications Albuterol (Ventolin) 2.5 mg INH NOW ONE Stop: 03/08/19 19:47 Last Admin: 03/08/19 19:46 Dose: 2.5 mg Diphenhydramine HCl (Benadryl) 50 mg IV NOW ONE Stop: 03/08/19 19:01 Last Admin: 03/08/19 19:10 Dose: 50 mg Epinephrine HCl (Adrenalin) 0.3 mg IM NOW ONE Stop: 03/08/19 19:08 Last Admin: 03/08/19 20:06 Dose: 0.3 mg Sodium Chloride (Normal Saline 0.9%) 1,000 mls @ 1,000 mls/hr IV BOLUS ONE Stop: 03/08/19 20:00 Last Infusion: 03/08/19 21:52 Dose: 0 mls/hr Admin: 03/08/19 19:10 Dose: 1,000 mls/hr Methylprednisolone (Solu-Medrol 125 Mg Vial) 125 mg IV NOW ONE Stop: 03/08/19 19:01 Last Admin: 03/08/19 19:10 Dose: 125 mg Ondansetron HCl (Zofran) 4 mg IV NOW ONE Stop: 03/08/19 20:22 Last Admin: 03/08/19 20:30 Dose: 4 mg Vital Signs - 8 hr 03/08/19 17:53 03/08/19 19:57 03/08/19 21:48 Temperature 98.5 F Pulse Rate 77 70 86 Respiratory Rate 18 18 14 Blood Pressure 140/91 H 135/80 Pulse Oximetry 98 98 98 <Dallas Jiang DO - Last Filed: 03/08/19 22:24> Orders Ordered: Discontinued Medications Albuterol (Ventolin) 2.5 mg INH NOW ONE Stop: 03/08/19 19:47 Last Admin: 03/08/19 19:46 Dose: 2.5 mg Diphenhydramine HCl (Benadryl) 50 mg IV NOW ONE Stop: 03/08/19 19:01 Last Admin: 03/08/19 19:10 Dose: 50 mg Epinephrine HCl (Adrenalin) 0.3 mg IM NOW ONE Stop: 03/08/19 19:08 Last Admin: 03/08/19 20:06 Dose: 0.3 mg Sodium Chloride (Normal Saline 0.9%) 1,000 mls @ 1,000 mls/hr IV BOLUS ONE Stop: 03/08/19 20:00 Last Infusion: 03/08/19 21:52 Dose: 0 mls/hr Admin: 03/08/19 19:10 Dose: 1,000 mls/hr Methylprednisolone (Solu-Medrol 125 Mg Vial) 125 mg IV NOW ONE Stop: 03/08/19 19:01 Last Admin: 03/08/19 19:10 Dose: 125 mg Ondansetron HCl (Zofran) 4 mg IV NOW ONE Stop: 03/08/19 20:22 Last Admin: 03/08/19 20:30 Dose: 4 mg Vital Signs - 8 hr 03/08/19 17:53 03/08/19 19:57 03/08/19 21:48 Temperature 98.5 F Pulse Rate 77 70 86 Respiratory Rate 18 18 14 Blood Pressure 140/91 H 135/80 Pulse Oximetry 98 98 98 MDM - Allergic Reaction <Elizabeth DiorLORNE lara- - Last Filed: 03/08/19 22:15> MDM Narrative Medical decision making narrative: The patient is a 33-year-old female who presented with shortness of breath resulting from an allergic reaction. She was given epinephrine in triage, followed by Solu-Medrol as well as Benadryl. She felt much better after the medications as well as a nebulizer. I placed her on a burst of steroid. She was observed for several hours. She remained hemodynamically stable and received a L fluid. I encouraged her to come back to the emergency department for any acute concerns such as recurrent allergic reaction, she had shortness of breath, etc. Encouraged follow-up with primary care provider. Patient has no questions or concerns upon discharge Discharge Plan Departure Patient Disposition: Home Clinical Impression: Allergic reaction Qualifiers: Encounter type: initial encounter Qualified Code(s): T78.40XA - Allergy, unspecified, initial encounter Discharge Date/Time: 03/08/19 21:52 Interventions: ED Discharge Assessment Last Done: 03/08/19 21:48 Instructions: DI for Anaphylaxis Activity Restrictions/Additional Instructions: Today we treated you for allergic reaction. I have given you a prescription of an EpiPen, a steroid burst and a prescription of Zofran. Please come back to the emergency department for any acute shortness of breath or recurrence allergic reaction. Please follow up with primary care provider as soon as possible. Come back to the ER if you need to. Prescriptions: New prednisone 50 mg tablet 50 mg PO DAILY Qty: 5 RF: 0 ondansetron 4 mg tablet,disintegrating 4 mg PO TID PRN (Reason: nausea and vomiting) 5 Days Qty: 20 RF: 0 epinephrine [EpiPen 2-Shahzad] 0.3 mg/0.3 mL auto-injector 0.3 mg IM Q15M PRN (Reason: anaphylaxis) 1 Days Qty: 1 RF: 0 No Action levothyroxine [Synthroid] 50 mcg tablet 1 tab PO DAILY RF: 0 gabapentin 300 mg capsule 1 cap PO TID RF: 0 montelukast 10 mg tablet 10 mg PO DAILY RF: 0 epinephrine 0.3 mg/0.3 mL auto-injector 1 dose IM PRN PRN (Reason: Allergic Reaction) RF: 0 albuterol sulfate [ProAir HFA] 90 mcg/actuation HFA aerosol inhaler 1 puff Inhalation PRN PRN (Reason: Shortness Of Breath) RF: 0 fluticasone propion-salmeterol [Advair HFA] 45-21 mcg/actuation HFA aerosol inhaler 1 puff Inhalation BID RF: 0 cetirizine [Zyrtec] 10 mg Tablet 1 tab PO DAILY PRN (Reason: Allergy Symptoms) RF: 0 fluticasone propionate [Flonase Allergy Relief] 50 mcg/actuation [place],Suspension 1 spray Intranasal PRN PRN (Reason: Allergy Symptoms) RF: 0 [id number]-rucwewdmfchby-poscslsq [Excedrin Extra Strength] 250-250-65 mg Tablet 1 tab PO PRN PRN (Reason: pain) RF: 0 ibuprofen 600 mg tablet 600 mg PO QID PRN (Reason: pain) Qty: 30 RF: 0 oxycodone-acetaminophen 5-300 mg tablet 2 tab PO Q4-6H PRN (Reason: pain) Qty: 40 RF: 0 oxycodone-acetaminophen 5-325 mg tablet 2 tab PO Q4-6H PRN (Reason: pain) Qty: 40 RF: 0 prednisone 20 mg tablet 40 mg PO DAILY Qty: 8 RF: 0 Referrals: [facility], [place] [Outside] Stand Alone Forms: Work Release Note <Dallas Jiang DO - Last Filed: 03/08/19 22:24> Cosign ED Attending Cosignature Attestation: I was available for consultation during this patient's emergency department encounter
== END 2019-03-08 21:52 | disposition home or self-care (01) ==
PROVIDERS: Emergency Provider Nurse Practitioner Family
DX: T78.40XA Allergy, unspecified, initial encounter (principal); R07.89 Other chest pain; R06.02 Shortness of breath
CPT/HCPCS: 94640; 96361; 96374; 96375; 99283; 99284; J0171; J1200; J2405; J2930; J7613

== ENCOUNTER 2019-03-28 06:17 | Emergency (ER) | payer OTHER, SELFPAY ==
[2018-09-08 16:19] VITALS: BMI 42.6
[2019-03-28 06:20] VITALS: BP 137/66; PULSE 87; RESP 20; TEMP 36.7; O2SAT 99; BMI 44.6
[2019-03-28 06:31] VITALS: PULSE 81; RESP 14; O2SAT 100
[2019-03-28] MEDS: ALBUTEROL 2.5 MG/3 ML NEB (ADULT) INH (06:31)
--- NOTE | 2019-03-28 06:35 | ED.ALLEREA ---
HPI - Allergic Reaction General Chief complaint: Allergic Reaction Stated complaint: hurts to breathe Time Seen by Provider: 03/28/19 06:28 Source: patient Mode of arrival: ambulatory Limitations: no limitations History of Present Illness HPI narrative: Patient is a 33-year-old female with ?multiple severe allergies ?most of them seem to be environmental on multiple allergy medications. Primary care doctor is on the [facility]. She states she has seen an foreign legal consultant in the past but is waiting for a referral to see a new foreign legal consultant. Patient has an EpiPen at home because of the ?severe allergy to grass ?she states that where she works there is quite a bit of dust and rodriguez. She works at a nursing facility. She states that last evening she had a ?attack? she states that she gave herself her EpiPen approximately 2 hours prior to arrival here in the emergency department. She states that she did that because she was ?seeing black spots? she has also been using her rescue inhaler. She him into the emergency department because she states that she thought she ?could not see to go home ? Related Data Home Medications Medication Instructions Recorded Confirmed albuterol sulfate [ProAir HFA] 1 puff INHALATION PRN PRN 09/08/18 10/11/18 zjiuvow-colbnfqnljqmw-nadtizax 1 tab PO PRN PRN 09/08/18 10/11/18 [Excedrin Extra Strength] cetirizine [Zyrtec] 1 tab PO DAILY PRN 09/08/18 10/11/18 epinephrine 1 dose IM PRN PRN 09/08/18 10/11/18 fluticasone propion-salmeterol 1 puff INHALATION BID 09/08/18 10/11/18 [Advair HFA] fluticasone propionate [Flonase 1 spray INTRANASAL PRN PRN 09/08/18 10/11/18 Allergy Relief] gabapentin 1 cap PO TID 09/08/18 10/11/18 levothyroxine [Synthroid] 1 tab PO DAILY 09/08/18 10/11/18 montelukast 10 mg PO DAILY 09/08/18 10/11/18 Previous Rx's Medication Instructions Recorded ibuprofen 600 mg PO QID PRN #30 tab 09/08/18 oxycodone-acetaminophen 2 tab PO Q4-6H PRN #40 tab 09/08/18 oxycodone-acetaminophen 2 tab PO Q4-6H PRN #40 tab 09/08/18 prednisone 40 mg PO DAILY #8 tab 02/19/19 prednisone 50 mg PO DAILY #5 tab 03/08/19 prednisone 20 mg PO DAILY #43 tab 03/28/19 Allergies Allergy/AdvReac Type Severity Reaction Status Date / Time No Known Drug Allergies Allergy Verified 10/11/18 11:55 Review of Systems Constitutional Denies fever(s) and Reports headache(s) Eyes Reports itchy eyes Comments: Seeing black spots ENT Ears, Nose, Mouth, and Throat: Denies vertigo, Denies ear discharge, Reports headache(s), Reports hoarseness, Reports sinus pain, Reports sinus pressure, Denies sore throat and Denies throat swelling Cardiovascular Denies chest pain and Reports dyspnea Respiratory Reports pain on inspiration, Reports dyspnea and Reports wheezing Gastrointestinal Gastrointestinal: Denies abdominal pain, Denies nausea and Denies vomiting Genitourinary Denies dysuria Integumentary/Breasts Denies rash Neurologic Denies behavioral changes, Denies vertigo and Reports headache(s) Psychiatric Denies behavioral changes Hematologic/Lymphatic Denies easy bleeding and Denies easy bruising Allergic/Immunologic Denies urticaria, Reports itchy eyes, Reports seasonal rhinorrhea, Denies throat swelling and Reports wheezing [facility] Medical History Multiple allergies (Acute) Dermoid tumor (Acute) Migraine headache with aura (Chronic) Surgical History History of tonsillectomy (Inactive) S/P wrist surgery (Inactive) Social History household members: spouse Smoking Status: Never smoker Social History household members: spouse Smoking Status: Never smoker Exam Initial Vital Signs Initial Vital Signs: Vital Signs Temperature 98.1 F 03/28/19 06:20 Pulse Rate 87 03/28/19 06:20 Respiratory Rate 20 03/28/19 06:20 Blood Pressure 137/66 03/28/19 06:20 Pulse Oximetry 99 03/28/19 06:20 Const General: well developed and No acute distress Orientation: alert, awake and oriented x3 HENMT Head: normal to inspection and normocephalic Resp Effort & Inspection: normal respiratory effort Auscultation: clear to auscultation bilaterally Cardio Rate: regular rate Rhythm: regular rhythm Pulses: radial pulses present GI Inspection: non-distended Palpation: soft and No tender Skin Lesions: no lesions Rashes: no rashes Neuro General: alert and awake Cognition: normal cognition Extrem General: normal to inspection and capillary refill normal Psych Appearance: grossly normal Course Orders Ordered: Discontinued Medications Albuterol (Ventolin) 2.5 mg INH NOW ONE Stop: 03/28/19 06:30 Last Admin: 03/28/19 06:31 Dose: 2.5 mg Prednisone (Deltasone) 40 mg PO NOW ONE Stop: 03/28/19 06:36 Last Admin: 03/28/19 06:45 Dose: 40 mg Vital Signs - 8 hr 03/28/19 06:20 03/28/19 06:31 Temperature 98.1 F Pulse Rate 87 81 Respiratory Rate 20 14 Blood Pressure 137/66 Pulse Oximetry 99 100 MDM - Allergic Reaction MDM Narrative Medical decision making narrative: Patient reports that she feels better after the nebulizer treatment. She was given steroids here in the emergency department. She has no symptoms consistent with anaphylaxis. Discussed with her that she needed to talk with her primary doctor about referral to see foreign legal consultant and also to get a nebulizer. Informed her that I could not do that out of the emergency department. Was sent home with a longer course of steroids this time. Patient is given return precautions. She expressed understanding and agreement with plan. Discharge Plan Departure Patient Disposition: Home Clinical Impression: Allergic reaction Qualifiers: Encounter type: initial encounter Qualified Code(s): T78.40XA - Allergy, unspecified, initial encounter Instructions: Allergies (Alternative Therapy) Activity Restrictions/Additional Instructions: You do need to talk with your primary doctor about a referral to see an foreign legal consultant and also to discuss getting a nebulizer for home use. Continue all of her medications as directed. Return to the emergency department for any new or worsening symptoms Prescriptions: New prednisone 20 mg tablet 20 mg PO DAILY Qty: 43 RF: 0 No Action levothyroxine [Synthroid] 50 mcg tablet 1 tab PO DAILY RF: 0 gabapentin 300 mg capsule 1 cap PO TID RF: 0 montelukast 10 mg tablet 10 mg PO DAILY RF: 0 epinephrine 0.3 mg/0.3 mL auto-injector 1 dose IM PRN PRN (Reason: Allergic Reaction) RF: 0 albuterol sulfate [ProAir HFA] 90 mcg/actuation HFA aerosol inhaler 1 puff Inhalation PRN PRN (Reason: Shortness Of Breath) RF: 0 fluticasone propion-salmeterol [Advair HFA] 45-21 mcg/actuation HFA aerosol inhaler 1 puff Inhalation BID RF: 0 cetirizine [Zyrtec] 10 mg Tablet 1 tab PO DAILY PRN (Reason: Allergy Symptoms) RF: 0 fluticasone propionate [Flonase Allergy Relief] 50 mcg/actuation [place],Suspension 1 spray Intranasal PRN PRN (Reason: Allergy Symptoms) RF: 0 atbaodt-tlpprcmqcgrno-jtpdyaiz [Excedrin Extra Strength] 250-250-65 mg Tablet 1 tab PO PRN PRN (Reason: pain) RF: 0 ibuprofen 600 mg tablet 600 mg PO QID PRN (Reason: pain) Qty: 30 RF: 0 oxycodone-acetaminophen 5-300 mg tablet 2 tab PO Q4-6H PRN (Reason: pain) Qty: 40 RF: 0 oxycodone-acetaminophen 5-325 mg tablet 2 tab PO Q4-6H PRN (Reason: pain) Qty: 40 RF: 0 prednisone 20 mg tablet 40 mg PO DAILY Qty: 8 RF: 0 prednisone 50 mg tablet 50 mg PO DAILY Qty: 5 RF: 0 Referrals: Felecia Cortez MD [Primary Care Provider] -
[2019-03-28] MEDS: predniSONE 20 MG TABLET 40 MG PO (06:45)
[2019-03-28 07:17] VITALS: BP 128/74; PULSE 84; RESP 18; O2SAT 99
== END 2019-03-28 07:19 | disposition home or self-care (01) ==
PROVIDERS: Emergency Provider Emergency Medicine; PCP Family Medicine
DX: T78.40XA Allergy, unspecified, initial encounter (principal); R06.09 Other forms of dyspnea
CPT/HCPCS: 94150; 94640; 99282; 99283; J7613

== ENCOUNTER 2019-10-01 04:10 | Emergency (ER) | payer OTHER, SELFPAY ==
[2018-09-08 16:19] VITALS: BMI 42.6
--- NOTE | 2019-10-01 04:17 | DI.RAD.S_ITS ---
PROCEDURE: XR ANKLE RT MIN 3V INDICATIONS: twisted it,has had ankle surgery with screws and pins TECHNIQUE: 3 views of the ankle were acquired. COMPARISON: None. FINDINGS: Bones: No fractures or dislocations. Ankle mortise is normally aligned. No suspicious bony lesions. The talar dome demonstrates no silas abnormality. Soft tissues: Soft tissue swelling is seen. IMPRESSION: Soft tissue swelling is seen, without an acute abnormality seen by plain film. If there is point tenderness (or other clinical suspicion for a fracture not seen on these images) then a dedicated CT for a short-term followup plain film series could be considered for further evaluation, as clinically appropriate. Note: No significant discrepancy from the preliminary report. Dictated by: Norman Hutson M.D. on 10/01/2019 at 8:47 Approved by: Norman Hutson M.D. on 10/01/2019 at 8:47
[2019-10-01 04:19] VITALS: BP 153/75; PULSE 92; RESP 20; TEMP 36.2; O2SAT 97
--- NOTE | 2019-10-01 04:22 | ED_ITS ---
HPI - Extremity Injury (Lower) General Chief Complaint: Extremity Injury, Lower Stated Complaint: right ankle pain Time Seen by Provider: 10/01/19 04:15 Source: patient Mode of arrival: Wheelchair Limitations: no limitations History of Present Illness HPI Narrative: 33-year-old female here for evaluation of right ankle pain. States she was sitting at work when she stood up started having pain in the right ankle going up her right leg. She did not fall on her leg. Took some Tylenol and ibuprofen without any relief. Also has been icing her ankle. Related Data Home Medications Medication Instructions Recorded Confirmed albuterol sulfate [ProAir HFA] 1 puff INHALATION PRN PRN 09/08/18 10/11/18 ovvlqjf-zqbidwxgahhov-hinxkrhi 1 tab PO PRN PRN 09/08/18 10/11/18 [Excedrin Extra Strength] cetirizine [Zyrtec] 1 tab PO DAILY PRN 09/08/18 10/11/18 epinephrine 1 dose IM PRN PRN 09/08/18 10/11/18 fluticasone propion-salmeterol 1 puff INHALATION BID 09/08/18 10/11/18 [Advair HFA] fluticasone propionate [Flonase 1 spray INTRANASAL PRN PRN 09/08/18 10/11/18 Allergy Relief] gabapentin 1 cap PO TID 09/08/18 10/11/18 levothyroxine [Synthroid] 1 tab PO DAILY 09/08/18 10/11/18 montelukast 10 mg PO DAILY 09/08/18 10/11/18 Previous Rx's Medication Instructions Recorded ibuprofen 600 mg PO QID PRN #30 tab 09/08/18 oxycodone-acetaminophen 2 tab PO Q4-6H PRN #40 tab 09/08/18 oxycodone-acetaminophen 2 tab PO Q4-6H PRN #40 tab 09/08/18 prednisone 40 mg PO DAILY #8 tab 02/19/19 prednisone 50 mg PO DAILY #5 tab 03/08/19 prednisone 20 mg PO DAILY #43 tab 03/28/19 Allergies Allergy/AdvReac Type Severity Reaction Status Date / Time No Known Drug Allergies Allergy Verified 10/11/18 11:55 Review of Systems Constitutional Constitutional: Denies fever(s) Musculoskeletal Musculoskeletal: Denies tingling Comments: Right ankle pain Integumentary/Breasts Skin/Breast: Denies rash Neurologic Neurologic: Denies tingling Patient History Medical History Dermoid tumor (Acute) Migraine headache with aura (Chronic) Multiple allergies (Acute) Surgical History History of tonsillectomy (Inactive) S/P wrist surgery (Inactive) Social History household members: spouse Smoking Status: Never smoker alcohol intake frequency: holidays/special occasions only Substance Use Type: does not use Exam Initial Vital Signs Initial Vital Signs: Vital Signs Temperature 97.2 F L 10/01/19 04:19 Pulse Rate 92 H 10/01/19 04:19 Respiratory Rate 20 10/01/19 04:19 Blood Pressure 153/75 H 10/01/19 04:19 Pulse Oximetry 97 10/01/19 04:19 Const General: cooperative, healthy appearing and comfortable Resp Effort & Inspection: normal respiratory effort Cardio Pulses: dorsalis pedis present on the right Skin Lesions: no lesions Rashes: no rashes Neuro General: alert and awake Sensory Exam: no sensory deficits noted Extrem Other: Right knee unremarkable, right proximal fibula unremarkable, patient has tenderness to palpation lateral aspect of the right ankle. Right foot unremarkable Psych Appearance: grossly normal and well kempt Procedures Orthopedic Splinting/Casting Injury #1: Side: right Lower Extremity Injury Location: ankle Lower Extremity Immobilizer: [place] wrap Other Orthopedic Equipment: crutches Post splinting neuro exam: intact Post splinting vascular exam: intact Placed by: Nursing Course Orders Ordered: ED Orders 10/01/19 04:17 XR ankle RT min 3V Stat Vital Signs Vital signs: Vital Signs - 8 hr 10/01/19 04:19 Temperature 97.2 F L Pulse Rate 92 H Respiratory Rate 20 Blood Pressure 153/75 H Pulse Oximetry 97 MDM - Extremity Injury (Lower) Imaging Data Ankle x-ray: Attestation: I personally reviewed and interpreted this imaging study as follows: My impression: No fractures, no dislocations MDM Narrative Medical decision making narrative: Patient was sitting in the bed with her right leg turned out words however when I touch the area of the lateral malleolus he states that it was in extreme pain. She was also texting on her phone during this time. Her x-ray is unremarkable. Low suspicion for fracture. She was given an [place] bandage and crutches for comfort. No further workup needed in the emergency department. Discharge Plan Departure Patient Disposition: Home Clinical Impression: Ankle pain, right Qualifiers: Chronicity: acute Qualified Code(s): M25.571 - Pain in right ankle and joints of right foot Instructions: How to Use Crutches, How to Apply an Elastic Wrap on Ankle Activity Restrictions/Additional Instructions: You have no fractures on the x-ray. You can walk on your ankle. The crutches and the elastic bandage are for your comfort. You can take Tylenol and/or ibuprofen for any discomfort. I do recommend that you use some ice on her ankle. Return to the emergency department for any new symptoms. Prescriptions: No Action prednisone 20 mg tablet 20 mg PO DAILY Qty: 43 RF: 0 levothyroxine [Synthroid] 50 mcg tablet 1 tab PO DAILY RF: 0 gabapentin 300 mg capsule 1 cap PO TID RF: 0 montelukast 10 mg tablet 10 mg PO DAILY RF: 0 epinephrine 0.3 mg/0.3 mL auto-injector 1 dose IM PRN PRN (Reason: Allergic Reaction) RF: 0 albuterol sulfate [ProAir HFA] 90 mcg/actuation HFA aerosol inhaler 1 puff Inhalation PRN PRN (Reason: Shortness Of Breath) RF: 0 fluticasone propion-salmeterol [Advair HFA] 45-21 mcg/actuation HFA aerosol i nhaler 1 puff Inhalation BID RF: 0 cetirizine [Zyrtec] 10 mg Tablet 1 tab PO DAILY PRN (Reason: Allergy Symptoms) RF: 0 fluticasone propionate [Flonase Allergy Relief] 50 mcg/actuation [place],Suspension 1 spray Intranasal PRN PRN (Reason: Allergy Symptoms) RF: 0 gfnnzfh-drjchdudtdtmj-kbyhoxqt [Excedrin Extra Strength] 250-250-65 mg Tablet 1 tab PO PRN PRN (Reason: pain) RF: 0 ibuprofen 600 mg tablet 600 mg PO QID PRN (Reason: pain) Qty: 30 RF: 0 oxycodone-acetaminophen 5-300 mg tablet 2 tab PO Q4-6H PRN (Reason: pain) Qty: 40 RF: 0 oxycodone-acetaminophen 5-325 mg tablet 2 tab PO Q4-6H PRN (Reason: pain) Qty: 40 RF: 0 prednisone 20 mg tablet 40 mg PO DAILY Qty: 8 RF: 0 prednisone 50 mg tablet 50 mg PO DAILY Qty: 5 RF: 0 Referrals: Felecia Cortez MD [Primary Care Provider] - Stand Alone Forms: Work Release Note
[2019-10-01 05:06] VITALS: BP 142/72; PULSE 80; RESP 18; O2SAT 97
== END 2019-10-01 05:07 | disposition home or self-care (01) ==
PROVIDERS: Emergency Provider Emergency Medicine; PCP Family Medicine
DX: M25.571 Pain in right ankle and joints of right foot (principal)
CPT/HCPCS: 73610; 99282; 99283

== ENCOUNTER → 2019-10-13 18:50 | Outpatient (CLI) | payer OTHER, SELFPAY ==
[2018-09-08 16:19] VITALS: BMI 42.6
--- NOTE | 2019-10-13 18:52 | DI.MRI.S_ITS ---
PROCEDURE: MR ANKLE RT WO CON INDICATIONS: STRAIN OF OTHER MUSCLES AND TENDONS TECHNIQUE: Noncontrast sagittal T1 spin echo and T2 fast spin echo with fat saturation, axial proton density fast spin echo and T2 fast spin echo with fat saturation, coronal T1 spin echo and T2 fast spin echo with fat saturation through the ankle/hindfoot. COMPARISON: [facility], CR, XR ANKLE RT MIN 3V, 10/01/2019, 4:22. FINDINGS: Image quality: Excellent. Bones and joints: No bone marrow contusions or fractures. No hindfoot coalitions. No osteochondral injuries of the talar dome. There is a small tibiotalar joint effusion. Medial structures: The posterior tibialis, flexor digitorum longus, and flexor hallucis longus tendons are intact. The posterior tibialis tendon is thickened with increased internal signal and fluid in the tendon sheath compatible with tenosynovitis. The posterior tibial neurovascular bundle appears normal within the tarsal tunnel, without extrinsic mass effect. The deep layer (anterior and posterior tibiotalar ligaments) and superficial layer (tibionavicular, tibiospring, and tibiocalcaneal ligaments) of the deltoid ligament appear normal. The spring ligament components (superomedial calcaneonavicular, medioplantar oblique calcaneonavicular, and inferoplantar longitudinal ligaments) are intact. Lateral structures: Postsurgical changes compatible with lateral ligament repair likely involving the anterior talofibular and calcaneofibular ligaments. The anterior talofibular and calcaneofibular appear thickened, but intact. The posterior talofibular ligament appears intact. More superiorly, the anterior and posterior tibiofibular ligaments appear intact, as is the intermalleolar ligament. The tibiofibular syndesmosis is normal in width at 2 mm or less. There is a split tear of the peroneus brevis tendon. The peroneus longus tendon demonstrates normal location and morphology. Adjacent bony peroneal tubercle and retrotrochlear prominence are normal in size. The sinus tarsi demonstrates normal fatty signal, without edema, fibrosis, or cyst formation. Visualized sinus tarsi components (cervical ligament, interosseous talocalcaneal ligament, roots of the inferior extensor retinaculum) appear normal. The calcaneonavicular and calcaneocuboid components of the bifurcate ligament appear intact. The dorsal calcaneocuboid ligament appears intact. Anterior structures: The tibialis anterior, extensor hallucis longus, and extensor digitorum longus tendons appear intact. The dorsal talonavicular ligament appears intact. Posterior and plantar structures: Achilles tendon is intact. The medial band plantar fasciitis is thickened. The lateral band of the plantar fascia is normal in thickness. No abductor digiti quinti muscle atrophy to suggest [place] neuropathy. IMPRESSION: 1. Postsurgical changes compatible with lateral ligament repair with thickened anterior talofibular and calcaneofibular ligaments. 2. Split tear of the peroneus brevis tendon. 3. Posterior tibialis tenosynovitis. 4. Medial band plantar fasciitis. 5. Small tibiotalar joint effusion. Dictated by: Negin Griffin MD, PhD on 10/14/2019 at 9:11 Approved by: Negin Griffin MD, PhD on 10/16/2019 at 15:14
== END ==
PROVIDERS: PCP Family Medicine; Visit Provider Family Medicine
DX: S96.811A Strain of other specified muscles and tendons at ankle and foot level, right foot, initial encounter (principal); M65.871 Other synovitis and tenosynovitis, right ankle and foot; M72.2 Plantar fascial fibromatosis; M25.471 Effusion, right ankle
CPT/HCPCS: 73721

== ENCOUNTER 2020-01-06 12:23 | Day surgery (SDC) | payer OTHER, SELFPAY ==
[2018-09-08 16:19] VITALS: BMI 42.6
[2020-01-03 14:25] VITALS: BMI 50.6
[2020-01-06] VITALS (7 sets, daily range): BP systolic 133–166; BP diastolic 59–98; PULSE 68–89; RESP 10–17; TEMP 36.6–37.3; O2SAT 96–100; BMI 45.6
[2020-01-06] MEDS: LACTATED RINGERS 1,000 ML 42 ML IV ×2 (14:28→16:16)
--- NOTE | 2020-01-06 15:06 | PM.PREOP ---
Pre-operative Note Interval Note History & Physical reviewed/Exam performed by Physician: Yes Changes to H&P: No
[2020-01-06] MEDS: CEFAZOLIN 2 GM/100 ML FROZ.PIGGY IV (15:32)
--- NOTE | 2020-01-06 15:57 | SUR.OPER ---
right Lateral on padded OR bed, head on pillow, gel axillary roll in place, bottom leg bent with gel pad under knee to foot, upper leg straight and supported with pillows. Upper arm supported by pillows and secured over bottom arm to padded arm board. Safety belt at hip, tape over blanket lower legs.
[2020-01-06] MEDS: BUPIVACAINE 0.25% W/ EPI 30 ML VIAL INJ (16:17)
--- NOTE | 2020-01-06 16:35 | P.OP_ITS ---
Operative Date/Time/Diagnoses Date of procedure: 01/06/20 Time of procedure: 16:00 Pre-op diagnosis: Right peroneus brevis tendon tear Post-op diagnosis: same Procedure & Clinicians Procedure: Repair peroneus brevis tendon right CPT code 14136 Same procedure as scheduled: Yes Indications: The Patient is a 34-year-old female that had a Brostrom lateral ankle ligament reconstruction 2015 she did well after this but then in September of 2019 she stood up and had a sharp popping pain along her peroneal tendons. An MRI demonstrated a split peroneus brevis tendons tear. She has had continued pain despite conservative therapy of greater than 3 months. She has been indicated for exploration peroneal tendon debridement versus repair tenodesis as indicated. The risks and benefits of the procedure have been discussed with the patient even opportunity to ask questions. The risks of surgery include but are not limited to infection, malunion, nonunion, persistence of pain, damage to nerves and blood vessels, posttraumatic arthritis, DVT, PE, cardiopulmonary complications and . The patient expressed a thorough understanding of the risks and benefits of surgery and has elected to proceed. Consent was signed in the office. Surgeon: Erna Hayes Click Yes if Unassisted: Yes Anesthesia Type: General and Local Operative Notes Findings: Back side split tear peroneus brevis tendon. Severely tendinotic part was debrided and then remainder was tubularized with a 3 O Vicryl suture Closure Type: primary Specimen(s): none sent Applied: other (Splint) Estimated Blood Loss (mL): 5 Blood products transfused: none Tourniquet time (min): 17 Procedure in detail: Patient was seen in the preoperative area the site of surgery was marked informed consent confirmed. The patient was then brought back to the operating room by the anesthesia team positioned on the operative table in the supine position. General anesthetic was administered and the patient was positioned lateral on the beanbag. All bony prominences were well padded. A well padded calf tourniquet was placed. An SCD was on the down non operative extremity. And an axillary roll was placed. The right lower extremities prepped and draped in the standard sterile fashion. A formal time- out procedure was performed confirming the patient's side and site of surgery and appropriate weight based administration of preoperative antibiotics. All were in agreement. Attention turned to the patient's lateral scar along the peroneal tendons from her previous Brostrom repair. Esmarch was used for exsanguination tourniquet was elevated to 250 mm of mercury and stayed there for 17 minutes. The previous incision was reopened this was taken down through the skin subcutaneous tissues. There was copious scarring along area. This was dissected down to the level of the peroneal sheath. Peroneal sheath was opened with a knife and then a [place] was placed into the peroneal sheath and the remainder of the she has with open directly over the [place] careful to preserve a cuff of peroneal sheath for later repair. The peroneus longus and brevis tendons were then inspected. There is no evidence of any low-lying muscle bellies. Peroneus longus was intact. The peroneus brevis demonstrated a backside longitudinal tear and flattening. There was mild amount of severe tendinosis along the edges of this tear and this was excised. Remainder of the tendon was then tubularized using a 3 O Vicryl suture achieving excellent a tubularization. This was placed back within the groove irrigated and then the sheath was repaired with 302 O Vicryl. The tendons were tested more stable within the peroneal groove and sheath. No evidence of dislocation. Irrigation was completed the skin was closed with 3 O Vicryl, 4 0 Monocryl and 3 O nylon suture. Local anesthetic was infiltrated in the incision. The tourniquet was released prior to wound closure. Hemostasis was confirmed. Patient was then placed a sterile dressing with Xeroform gauze Webril [place] wrap and AU splint. Patient was woken from anesthesia and taken to the recovery room in good condition. There no immediate complications from this procedure. All counts we re correct. Complications: none Post-operative Condition: stable Disposition: PACU Plan for aftercare: Nonweightbearing right lower extremity in splint x2 weeks then she will go into a boot that she will bring with her to clinic. She will start weight-bearing 25% body weight each week after that her 2 week appointment. She may do dorsiflexion and plantar flexion but no peroneal provocative exercises. Aspirin for DVT prophylaxis
[2020-01-06] MEDS: fentaNYL 100 MCG/2 ML INJ IV (16:40)
[2020-01-06] MEDS: OXYCODONE/ACETAMINOPHEN 5/325 TABLET 1 TAB PO (16:55)
--- NOTE | 2020-01-06 18:00 | SUR.PHASEII ---
Discharged patient home with in stable condition with all belongings returned. VSS.
== END 2020-01-06 17:54 | disposition home or self-care (01) ==
PROVIDERS: PCP Family Medicine; Referring Provider Orthopaedic Surgery Foot and Ankle Surgery; Visit Provider Orthopaedic Surgery Foot and Ankle Surgery
PROC: (CPT 27650; principal; 2020-01-06 14:00)
DX: S86.311A Strain of muscle(s) and tendon(s) of peroneal muscle group at lower leg level, right leg, initial encounter (principal); Z98.890 Other specified postprocedural states
CPT/HCPCS: 27675; J0690; J1100; J1885; J2405; J2704; J3010